=== PATIENT | female | born 1940 | race Caucasian/White ===

== ENCOUNTER 2018-11-03 15:14 | Inpatient (IN) | payer MEDICARE, OTHER ==
[~2018-11-03] VITALS: Ht 172.7 cm; Wt 89.0 kg
[~2018-11-03 15:14] MED LIST: FURO-61 PO; POTA20TA19 PO; PRED20TA PO
[2018-11-03] MEDS ORDERED: ipratropium/albuterol 3ml nebule NEB ONE (15:55)
[2018-11-03] MEDS ORDERED: normal saline 1000ML IV soln IV ONE (15:55)
[2018-11-03] MEDS ORDERED: diltiazem 5mg/ml 5ml inj. IV ONE ×2 (16:35→17:55)
[2018-11-03 16:44] LABS: BASOPHILS % (AUTO) 0.5 % (0-1); EOSINOPHILS % (AUTO) 0.4 % (0-6); HEMOGLOBIN 15.4 g/dl (12.0-16.0); LYMPHOCYTES # (AUTO) 2.2 X10'3 (1.1-4.8); LYMPHOCYTES % (AUTO) 35.3 % (21-51); MEAN CORPUSCULAR HEMOGLOBIN 31.6 PG (27.0-31.0); MEAN CORPUSCULAR HGB CONC 32.8 % (33.0-36.5); MEAN CORPUSCULAR VOLUME 96.1 FL (78-98); MONOCYTES # (AUTO) 1.1 X10'3 (0-0.9); MONOCYTES % (AUTO) 17.7 % (2-12); NEUTROPHILS # (AUTO) 2.8 X10'3 (1.8-7.7); NEUTROPHILS % (AUTO) 46.1 % (42-75); PLATELET COUNT 163 X10'3 (140-440); RED BLOOD COUNT 4.89 X10'6 (4.20-5.60); RED CELL DISTRIBUTION WIDTH 13.7 % (11.5-14.5); WHITE BLOOD COUNT 6.1 X10'3 (4.5-11.0)
[2018-11-03 17:01] LABS: ALANINE AMINOTRANSFERASE 24 U/L (12-78); ALBUMIN 3.5 G/DL (3.4-5.0); ALBUMIN/GLOBULIN RATIO 1.1 (1.1-1.5); ALKALINE PHOSPHATASE 102 IU/L (46-116); ANION GAP 11 (8-16); ASPARTATE AMINO TRANSFERASE 35 U/L (10-37); BILIRUBIN,TOTAL 0.4 MG/DL (0.1-1.0); BLOOD UREA NITROGEN 29 MG/DL (7-18); BUN/CREATININE RATIO 17.8 (6.6-38.0); CALCIUM 8.6 MG/DL (8.5-10.1); CHLORIDE 101 MMOL/L (99-107); CREATININE 1.63 MG/DL (0.40-0.90); GLUCOSE 118 MG/DL (70-104); POTASSIUM 3.6 MMOL/L (3.5-5.1); SODIUM 140 MMOL/L (135-145); TOTAL CARBON DIOXIDE 27.6 MMOL/L (24-32); TOTAL PROTEIN 6.8 G/DL (6.4-8.2); eGFR 30 ML/MIN
[2018-11-03 17:05] LABS: PROTHROMBIN TIME 10.3 SECONDS (9.0-12.0)
--- NOTE | 2018-11-03 17:12 | NUR ---
LAB CALLED PT INFLUENZA A POSITIVE
[2018-11-03] MEDS ORDERED: oseltamivir phos 75mg capsule PO ONE (17:15)
[2018-11-03] MEDS ORDERED: CefTRIAXone 2gm/D5W 50ml 50 ML IV ONE (17:15)
[2018-11-03] MEDS ORDERED: azithromycin/NS 500mg/250ml 250 ML IV ONE (17:15)
[2018-11-03] MEDS: diltiazem-D5W 125mg/125ml 125 ML IV SCH ×2 (17:19→18:06)
[2018-11-03] MEDS ORDERED: magnesium hydroxide 30ml (MOM) UD suspension PO PRN (17:25)
[2018-11-03] MEDS ORDERED: morphine 4 MG/ML inj SYRINge IV PRN ×2 (17:25)
[2018-11-03] MEDS ORDERED: HYDROcodone/acetaminophen 5mg/325mg tablet PO PRN (17:25)
[2018-11-03] MEDS ORDERED: acetaminophen 325mg tablet PO PRN (17:25)
[2018-11-03] MEDS ORDERED: mag hydrox/Alum hydrox/simeth 30ml oral suspension PO PRN (17:25)
[2018-11-03] MEDS ORDERED: ALLO100T PO (17:46)
[2018-11-03] MEDS ORDERED: POTA-82 PO (17:46)
[2018-11-03] MEDS ORDERED: VERA-1 PO (17:46)
[2018-11-03] MEDS ORDERED: CALC0.2535 PO (17:46)
[2018-11-03] MEDS ORDERED: GABA-532 PO (17:47)
[2018-11-03] MEDS ORDERED: ROSU5TAB PO (17:47)
[2018-11-03] MEDS ORDERED: CYAN-19 PO (17:48)
[2018-11-03] MEDS ORDERED: CHOL10002 PO (17:48)
[2018-11-03] MEDS ORDERED: ASPI-611 PO (17:50)
[2018-11-03] MEDS ORDERED: DOCU100C59 PO (17:50)
[2018-11-03] MEDS ORDERED: FURO-150 PO (17:53)
[2018-11-03] MEDS ORDERED: diltiazem 30mg tablet PO ONE (18:05)
[2018-11-03 18:36] LABS: CLARITY,URINE SLIGHTLY CLOUDY (Clear); COLOR,URINE YELLOW (Yellow); GLUCOSE, URINE NEGATIVE (Neg); KETONES,URINE 15 mg/dl (Neg); LEUKOCYTE ESTERASE ,URINE NEGATIVE (Neg); NITRITES, URINE NEGATIVE (Neg); OCCULT BLOOD,URINE NEGATIVE (Neg); PH,URINE 5.5 (4.8-8.0); PROTEIN,URINE 30 mg/dl (Neg)
[2018-11-03] MEDS: dextrose 5%-1/2 normal saline 1,000 ML IV SCH (18:39)
[2018-11-03] MEDS: ondansetron/PF 4mg/2ml inj IV PRN (18:42)
--- NOTE | 2018-11-03 18:42 | NUR ---
Pt states she got nauseated, adm zofran she wants to eat She continues to text on her phone
[2018-11-03 18:46] LABS: UA COLLECTION TYPE STRAIGHT CATH
[2018-11-03 18:48] LABS: BACTERIA,URINE NONE SEEN /HPF (Neg); MUCUS STRANDS FEW /LPF (Neg); RBC,URINE NONE SEEN /HPF (0-2); SQUAMOUS EPITHELIAL CELL,UR FEW /LPF (FEW); WBC,URINE NONE SEEN /HPF (0-4)
[2018-11-03 18:49] LABS: AMORPHOUS URATES 2+
--- NOTE | 2018-11-03 18:57 | NUR ---
Patient in room ED 3. I have received report from Annmarie CAMPOVERDE in the ED and had the opportunity to ask questions and assume patient care.
--- NOTE | 2018-11-03 19:05 | NUR ---
awaiting transport monitor so pt can be moved to her room but pt packaged.
[2018-11-03 19:11] LABS: TROPONIN I 0.05 NG/ML (0.0-0.05)
[2018-11-03 19:30] VITALS: BP 137/73
--- NOTE | 2018-11-03 19:30 | NUR ---
Pt is now in 3021. She is pleasant and sitting up in bed. She is hungry. Ordering late tray for her. Regular diet. DM controlled by diet per pt. She is flu A + and is droplet precaution. VS: 98.1 T 92 HR 20 RR 99 2L 137/73 BP L ARM AUTO 0/10 PAIN
[2018-11-03 20:00] VITALS: BP_SYST 108; BP_SYST 112; BP_SYST 137; BP_DIAS 69; BP_DIAS 73; BP_DIAS 74
[2018-11-03] MEDS: oseltamivir phos 75mg capsule PO SCH (20:00)
[2018-11-03] MEDS: furosemide 20MG tablet PO SCH ×2 (20:00→20:44)
[2018-11-03] MEDS: aspirin 81mg tab.chew PO SCH (20:43)
[2018-11-03] MEDS: docusate sod 100mg capsule PO SCH (20:43)
[2018-11-03] MEDS: atorvastatin 20mg tablet PO SCH (20:43)
[2018-11-03] MEDS: gabapentin 300mg capsule PO SCH (20:44)
[2018-11-03 22:24] LABS: TOTAL CELLS COUNTED 100
[2018-11-03 22:26] LABS: PLATELET ESTIMATE NORMAL
--- NOTE | 2018-11-03 22:54 | NUR ---
Spoke with Dr. Jensen regarding increased trop, 0.05 to 0.08. Only singles were ordered, series was cancelled. Dr. Jensen explained the increase is due to her new onset of afib, and not to continue the series. Pt also has active orders for Cardizem gtt, despite not coming up on one. I was given orders to DC the gtt since it is not necessary at this time.
[2018-11-03 23:00] VITALS: BP 105/66
[2018-11-04 03:00] VITALS: BP 146/81
[2018-11-04] MEDS: dextrose 5%-1/2 normal saline 1,000 ML IV SCH (03:21)
[2018-11-04] MEDS: ondansetron/PF 4mg/2ml inj IV PRN (03:41)
[2018-11-04 04:44] LABS: BASOPHILS % (AUTO) 0.3 % (0-1); EOSINOPHILS % (AUTO) 0 % (0-6); HEMATOCRIT 42.3 % (35.0-45.0); HEMOGLOBIN 13.9 g/dl (12.0-16.0); LYMPHOCYTES # (AUTO) 1.5 X10'3 (1.1-4.8); LYMPHOCYTES % (AUTO) 28.8 % (21-51); MEAN CORPUSCULAR HEMOGLOBIN 31.8 PG (27.0-31.0); MEAN CORPUSCULAR HGB CONC 32.8 % (33.0-36.5); MEAN CORPUSCULAR VOLUME 96.9 FL (78-98); MONOCYTES # (AUTO) 0.8 X10'3 (0-0.9); MONOCYTES % (AUTO) 16.2 % (2-12); NEUTROPHILS # (AUTO) 2.8 X10'3 (1.8-7.7); NEUTROPHILS % (AUTO) 54.7 % (42-75); PLATELET COUNT 142 X10'3 (140-440); RED BLOOD COUNT 4.36 X10'6 (4.20-5.60); RED CELL DISTRIBUTION WIDTH 13.9 % (11.5-14.5); WHITE BLOOD COUNT 5.1 X10'3 (4.5-11.0)
[2018-11-04 05:02] LABS: ALBUMIN 3.1 G/DL (3.4-5.0); ANION GAP 9 (8-16); BLOOD UREA NITROGEN 24 MG/DL (7-18); BUN/CREATININE RATIO 17.9 (6.6-38.0); CALCIUM 7.7 MG/DL (8.5-10.1); CHLORIDE 106 MMOL/L (99-107); CREATININE 1.34 MG/DL (0.40-0.90); GLUCOSE 140 MG/DL (70-104); POTASSIUM 3.5 MMOL/L (3.5-5.1); SODIUM 142 MMOL/L (135-145); TOTAL CARBON DIOXIDE 27.2 MMOL/L (24-32); eGFR 38 ML/MIN
--- NOTE | 2018-11-04 06:30 | NUR ---
Problems reprioritized. Patient report given, questions answered & plan of care reviewed with Lizette CAMPOVERDE.
--- NOTE | 2018-11-04 06:34 | NUR ---
Patient in room PCU 3022. I have received report from NIRALI Bush and had the opportunity to ask questions and assume patient care.
[2018-11-04 07:00] VITALS: BP 158/80
[2018-11-04] MEDS: calcitriol 0.25mcg capsule PO SCH (07:32)
[2018-11-04] MEDS: cyanocobalamin 500mcg tablet PO SCH (07:32)
[2018-11-04] MEDS: vitamin D (cholecalciferol) 1,000 unit tablet PO SCH (07:32)
[2018-11-04] MEDS: acetaminophen 325mg tablet PO PRN (07:33)
[2018-11-04] MEDS: potassium Cl 20 mEq SR tablet PO SCH (07:34)
[2018-11-04] MEDS: furosemide 20MG tablet PO SCH ×2 (07:34→20:00)
[2018-11-04] MEDS: allopurinol 100mg tablet PO SCH (07:34)
[2018-11-04] MEDS: oseltamivir phos 75mg capsule PO SCH ×2 (07:35→21:35)
[2018-11-04] MEDS ORDERED: enoxaparin 40mg/0.4ml syringe SUBCUT SCH (08:00)
[2018-11-04] MEDS ORDERED: verapamil SR 120mg (sust. release) tab PO SCH (08:00)
--- NOTE | 2018-11-04 08:19 | NUR ---
PAGER ID: [phone] MESSAGE: [phone] pt Alberto is Afib with HR sustaining 140s-150s. She is not on a gtt and has no PRN to address this. Please advise - Lizette [phone]
[2018-11-04] MEDS ORDERED: diltiazem 5mg/ml 5ml inj. IV STA (08:38)
[2018-11-04] MEDS ORDERED: dextrose 50%-water 50ml dispensing syringe IV PRN ×2 (08:45)
[2018-11-04] MEDS ORDERED: insulin Lispro (HumaLOG) vial - multi-dose SQ SCH (08:45)
[2018-11-04] MEDS ORDERED: dextrose ORAL solution 15 GM/59 ML bottle PO PRN ×2 (08:45)
[2018-11-04] MEDS ORDERED: glucagon, human recombinant 1mg kit SUBCUT PRN (08:45)
--- NOTE | 2018-11-04 09:31 | NUR ---
Paged Dr. Greenwood PAGER ID: [phone] MESSAGE: FYI 3022 Alberto, BP 114/60. Thanks Nona [phone]
[2018-11-04] MEDS ORDERED: enoxaparin 50mg/0.5ml (from 3ml vial) syringe SUBCUT ONE (09:45)
[2018-11-04] MEDS: diltiazem-D5W 125mg/125ml 125 ML IV SCH (09:52)
[2018-11-04 11:00] VITALS: BP 147/76
--- NOTE | 2018-11-04 11:54 | NUR ---
Paged Echo [phone] [facility] active order for echo. Thank you
[2018-11-04] MEDS: methylPREDNISolone sod succ 125mg/2ml vial IV SCH ×3 (12:15→23:53)
[2018-11-04] MEDS: CefTRIAXone/D5W-Rocephin 1gm 50 ML IV SCH (12:18)
[2018-11-04] MEDS: azithromycin/NS 500mg/250ml 250 ML IV SCH (13:23)
[2018-11-04 15:00] VITALS: BP 110/72
[2018-11-04] MEDS: ipratropium/albuterol 3ml nebule NEB SCH ×2 (15:54→20:07)
[2018-11-04 16:46] LABS: ALANINE AMINOTRANSFERASE 43 U/L (12-78); ALBUMIN 3.4 G/DL (3.4-5.0); ALKALINE PHOSPHATASE 96 IU/L (46-116); ASPARTATE AMINO TRANSFERASE 58 U/L (10-37); BILIRUBIN,DIRECT 0.2 MG/DL (0-0.3); BILIRUBIN,TOTAL 0.3 MG/DL (0.1-1.0); TOTAL PROTEIN 6.8 G/DL (6.4-8.2)
--- NOTE | 2018-11-04 18:15 | NUR ---
Patient in room PCU 3022. I have received report from Lizette CAMPOVERDE and had the opportunity to ask questions and assume patient care. Pt is currently awake and in bed. She is now on a cardizem gtt running at 3. Continuous pulse ox via vitals machine, no more mobiles available. ACHS accuchecks. There are written orders that were done via telephone from Dr. Johnston regarding new meds starting tmro.
--- NOTE | 2018-11-04 18:41 | NUR ---
[place] documentation: I have reviewed and agree with all interventions, assessments performed and documented by NIRALI Castellano. [place] Medication Administration: For this medication-pass time frame, all medication were reviewed, dispensed, administered and documented per hospital policy by NIRALI Castellano.
--- NOTE | 2018-11-04 18:42 | NUR ---
Problems reprioritized. Patient report given, questions answered & plan of care reviewed with Rachelle RN.
[2018-11-04 19:00] VITALS: BP 110/72
[2018-11-04] MEDS ORDERED: enoxaparin 100mg/ml syringe SUBCUT SCH (20:00)
[2018-11-04] MEDS: insulin glargine (Lantus) pen - multi-dose SQ SCH (21:00)
[2018-11-04] MEDS: lactobacillus rhamnosus 10,000 MMU CELLS/CAPSULE PO SCH (21:35)
[2018-11-04] MEDS: enoxaparin 60mg/0.6ml syringe SUBCUT SCH (21:36)
[2018-11-04] MEDS: enoxaparin 30mg/0.3ml syringe SUBCUT SCH (21:36)
[2018-11-04] MEDS: docusate sod 100mg capsule PO SCH (21:37)
[2018-11-04] MEDS: gabapentin 300mg capsule PO SCH (21:37)
[2018-11-04] MEDS: atorvastatin 20mg tablet PO SCH (21:37)
[2018-11-04] MEDS: aspirin 81mg tab.chew PO SCH (21:37)
[2018-11-04 23:00] VITALS: BP 137/90
[2018-11-05] VITALS (7 sets, daily range): BP systolic 117–135; BP diastolic 65–95
[2018-11-05 05:33] LABS: BASOPHILS % (AUTO) 0.2 % (0-1); EOSINOPHILS % (AUTO) 0.3 % (0-6); HEMATOCRIT 43.4 % (35.0-45.0); HEMOGLOBIN 14.4 g/dl (12.0-16.0); LYMPHOCYTES # (AUTO) 0.8 X10'3 (1.1-4.8); LYMPHOCYTES % (AUTO) 34.9 % (21-51); MEAN CORPUSCULAR HEMOGLOBIN 31.8 PG (27.0-31.0); MEAN CORPUSCULAR HGB CONC 33.1 % (33.0-36.5); MEAN CORPUSCULAR VOLUME 96.1 FL (78-98); MEAN PLATELET VOLUME 9.2 FL (7.4-10.4); MONOCYTES # (AUTO) 0.1 X10'3 (0-0.9); MONOCYTES % (AUTO) 4.2 % (2-12); NEUTROPHILS # (AUTO) 1.3 X10'3 (1.8-7.7); NEUTROPHILS % (AUTO) 60.4 % (42-75); PLATELET COUNT 135 X10'3 (140-440); RED BLOOD COUNT 4.51 X10'6 (4.20-5.60); RED CELL DISTRIBUTION WIDTH 13.7 % (11.5-14.5); WHITE BLOOD COUNT 2.2 X10'3 (4.5-11.0)
[2018-11-05 05:45] LABS: ALBUMIN 3.4 G/DL (3.4-5.0); ANION GAP 12 (8-16); BLOOD UREA NITROGEN 25 MG/DL (7-18); BUN/CREATININE RATIO 18.5 (6.6-38.0); CALCIUM 8.7 MG/DL (8.5-10.1); CHLORIDE 104 MMOL/L (99-107); CREATININE 1.35 MG/DL (0.40-0.90); GLUCOSE 226 MG/DL (70-104); SODIUM 141 MMOL/L (135-145); TOTAL CARBON DIOXIDE 25.2 MMOL/L (24-32); eGFR 38 ML/MIN
--- NOTE | 2018-11-05 06:15 | NUR ---
Problems reprioritized. Patient report given, questions answered & plan of care reviewed with Maggie CAMPOVERDE.
[2018-11-05] MEDS: lactobacillus rhamnosus 10,000 MMU CELLS/CAPSULE PO SCH ×2 (07:39→20:24)
[2018-11-05] MEDS: oseltamivir phos 75mg capsule PO SCH ×2 (07:39→20:22)
[2018-11-05] MEDS: potassium Cl 20 mEq SR tablet PO SCH (07:39)
[2018-11-05] MEDS: CefTRIAXone/D5W-Rocephin 1gm 50 ML IV SCH (07:39)
[2018-11-05] MEDS: azithromycin/NS 500mg/250ml 250 ML IV SCH (07:39)
[2018-11-05] MEDS: cyanocobalamin 500mcg tablet PO SCH (07:39)
[2018-11-05] MEDS: vitamin D (cholecalciferol) 1,000 unit tablet PO SCH (07:40)
[2018-11-05] MEDS: furosemide 20MG tablet PO SCH ×2 (07:40→20:00)
[2018-11-05] MEDS: enoxaparin 30mg/0.3ml syringe SUBCUT SCH (07:40)
[2018-11-05] MEDS: allopurinol 100mg tablet PO SCH (07:40)
[2018-11-05] MEDS: enoxaparin 60mg/0.6ml syringe SUBCUT SCH (07:40)
[2018-11-05] MEDS: methylPREDNISolone sod succ 125mg/2ml vial IV SCH ×2 (08:01→15:22)
--- NOTE | 2018-11-05 08:01 | NUR ---
PATIENT REFUSING INSULIN
[2018-11-05] MEDS: ipratropium/albuterol 3ml nebule NEB SCH ×3 (08:37→20:33)
[2018-11-05] MEDS: acetaminophen 325mg tablet PO PRN (09:45)
--- NOTE | 2018-11-05 11:25 | NUR ---
patient stating that she wants to go home and she is upset that the MD this morning told her she wasnt quite ready. She is asking if she can go anyways despite doctors orders.
[2018-11-05 11:35] LABS: BANDS% (MANUAL) 1.5 % (0-10); LYMPHOCYTES % (MANUAL) 24.5 % (21-51); MONOCYTES % (MANUAL) 3.5 % (2-12); NEUTROPHILS % (MANUAL) 70.5 % (42-75); PLATELET ESTIMATE DECREASED; TOTAL CELLS COUNTED 200
--- NOTE | 2018-11-05 13:39 | NUR ---
patients BS was 255, patient states "I do not take insulin" , she is refusing at this time
--- NOTE | 2018-11-05 16:43 | NUR ---
isatu came by and requested changes to the patients medication as follows : Coreg increased to 12.5 mg BID, PBNP lab to be drawn in the am and eliquis 5 mg BID to replace to the lovenox injections and ease the patient into discharge
--- NOTE | 2018-11-05 18:21 | NUR ---
Problems reprioritized. Patient report given, questions answered & plan of care reviewed with Charanjit CAMPOVERDE.
[2018-11-05] MEDS ORDERED: carvedilol 6.25mg tablet PO SCH (20:00)
[2018-11-05] MEDS: gabapentin 300mg capsule PO SCH (20:22)
[2018-11-05] MEDS: atorvastatin 20mg tablet PO SCH (20:22)
[2018-11-05] MEDS: carVEDilol 12.5mg tablet PO SCH (20:23)
[2018-11-05] MEDS: aspirin 81mg tab.chew PO SCH (20:23)
[2018-11-05] MEDS: docusate sod 100mg capsule PO SCH (20:24)
[2018-11-05] MEDS: amiodarone 200mg tablet PO SCH (20:24)
[2018-11-05] MEDS: insulin glargine (Lantus) pen - multi-dose SQ SCH (20:57)
[2018-11-06] VITALS (10 sets, daily range): BP systolic 92–128; BP diastolic 71–96
[2018-11-06] MEDS: methylPREDNISolone sod succ 125mg/2ml vial IV SCH ×3 (00:25→15:41)
[2018-11-06] MEDS: diltiazem-D5W 125mg/125ml 125 ML IV SCH (01:00)
--- NOTE | 2018-11-06 06:09 | NUR ---
Problems reprioritized. Patient report given, questions answered & plan of care reviewed with Virginia CAMPOVERDE.
[2018-11-06 06:12] LABS: BASOPHILS % (AUTO) 0.1 % (0-1); EOSINOPHILS % (AUTO) 0.7 % (0-6); HEMOGLOBIN 14.4 g/dl (12.0-16.0); LYMPHOCYTES % (AUTO) 13.8 % (21-51); MEAN CORPUSCULAR HEMOGLOBIN 32.4 PG (27.0-31.0); MEAN CORPUSCULAR HGB CONC 33.4 % (33.0-36.5); MEAN CORPUSCULAR VOLUME 96.8 FL (78-98); MEAN PLATELET VOLUME 9.4 FL (7.4-10.4); MONOCYTES # (AUTO) 0.6 X10'3 (0-0.9); MONOCYTES % (AUTO) 7.5 % (2-12); NEUTROPHILS # (AUTO) 5.9 X10'3 (1.8-7.7); NEUTROPHILS % (AUTO) 77.9 % (42-75); PLATELET COUNT 139 X10'3 (140-440); RED BLOOD COUNT 4.44 X10'6 (4.20-5.60); RED CELL DISTRIBUTION WIDTH 13.6 % (11.5-14.5); WHITE BLOOD COUNT 7.5 X10'3 (4.5-11.0)
--- NOTE | 2018-11-06 06:15 | NUR ---
Patient in room PCU 3022. I have received report from SERA CAMPOVERDE and had the opportunity to ask questions and assume patient care.
--- NOTE | 2018-11-06 06:15 | NUR ---
CORRECTED NOTE: Patient in room PCU 3022. I have received report from NEHA CAMPOVERDE and had the opportunity to ask questions and assume patient care.
[2018-11-06 06:38] LABS: ALBUMIN 3.4 G/DL (3.4-5.0); ANION GAP 9 (8-16); BLOOD UREA NITROGEN 36 MG/DL (7-18); BUN/CREATININE RATIO 24.2 (6.6-38.0); CHLORIDE 106 MMOL/L (99-107); CREATININE 1.49 MG/DL (0.40-0.90); GLUCOSE 195 MG/DL (70-104); POTASSIUM 4.7 MMOL/L (3.5-5.1); SODIUM 141 MMOL/L (135-145); TOTAL CARBON DIOXIDE 25.6 MMOL/L (24-32); eGFR 34 ML/MIN
--- NOTE | 2018-11-06 08:30 | NUR ---
Refuses insulin treatment for 201 blood sugar.
[2018-11-06] MEDS: ipratropium/albuterol 3ml nebule NEB SCH ×2 (08:32→15:00)
[2018-11-06] MEDS: calcitriol 0.25mcg capsule PO SCH (09:52)
[2018-11-06] MEDS: potassium Cl 20 mEq SR tablet PO SCH (09:52)
[2018-11-06] MEDS: carVEDilol 12.5mg tablet PO SCH (09:52)
[2018-11-06] MEDS: amiodarone 200mg tablet PO SCH ×2 (09:52→19:18)
[2018-11-06] MEDS: oseltamivir phos 75mg capsule PO SCH ×2 (09:52→19:19)
[2018-11-06] MEDS: lactobacillus rhamnosus 10,000 MMU CELLS/CAPSULE PO SCH ×2 (09:52→19:19)
[2018-11-06] MEDS: vitamin D (cholecalciferol) 1,000 unit tablet PO SCH (09:52)
[2018-11-06] MEDS: furosemide 20MG tablet PO SCH ×2 (09:52→19:21)
[2018-11-06] MEDS: cyanocobalamin 500mcg tablet PO SCH (09:53)
[2018-11-06] MEDS: azithromycin/NS 500mg/250ml 250 ML IV SCH (09:53)
[2018-11-06] MEDS: allopurinol 100mg tablet PO SCH (09:53)
[2018-11-06] MEDS: apixaban 5mg tablet PO SCH ×2 (09:54→19:19)
[2018-11-06] MEDS ORDERED: carVEDilol 3.125mg tablet PO ONE (11:00)
--- NOTE | 2018-11-06 11:00 | NUR ---
Started to wean Cardizem at this time, decreased to 2 mcg. Will decrease to 1 in 2 hours.
[2018-11-06] MEDS: CefTRIAXone/D5W-Rocephin 1gm 50 ML IV SCH (11:59)
--- NOTE | 2018-11-06 12:59 | NUR ---
Refuses insulin treatment for 254 blood sugar.
--- NOTE | 2018-11-06 13:18 | NUR ---
Decreased Cardizem to 1 mcg. Will turn off at 1500 and reevaluate heart status.
--- NOTE | 2018-11-06 15:12 | NUR ---
Stopped Cardizem drip, will cont. to monitor heart rate and rhythm.
[2018-11-06] MEDS ORDERED: CARV3.122 PO (17:01)
[2018-11-06] MEDS ORDERED: TAM75C PO (17:01)
[2018-11-06] MEDS ORDERED: AMOX-422 PO (17:01)
[2018-11-06] MEDS ORDERED: APIX5TAB3 PO (17:01)
[2018-11-06] MEDS ORDERED: AZI25OT PO (17:01)
[2018-11-06] MEDS ORDERED: CARV-50 PO (17:01)
[2018-11-06] MEDS ORDERED: AMIO200T40 PO ×2 (17:01)
[2018-11-06] MEDS ORDERED: PRED10TA PO (17:01)
--- NOTE | 2018-11-06 17:58 | NUR ---
Noted blood glucose 208, patient refuses insulin tx. Pending discharge this evening.
[2018-11-06] MEDS: gabapentin 300mg capsule PO SCH (19:18)
[2018-11-06] MEDS: aspirin 81mg tab.chew PO SCH (19:18)
[2018-11-06] MEDS: docusate sod 100mg capsule PO SCH (19:19)
[2018-11-06] MEDS: atorvastatin 20mg tablet PO SCH (19:19)
[2018-11-06] MEDS: insulin glargine (Lantus) pen - multi-dose SQ SCH (19:20)
[2018-11-06] MEDS ORDERED: carVEDilol 12.5mg tablet PO SCH (20:00)
--- NOTE | 2018-11-06 20:43 | NUR ---
DISCHARGED AT THIS TIME VIA W/C WITH AT SIDE WITHOUT EVENT, ESCORTED TO PRIVATE VEHICLE PER [facility] STAFF. BROUGHT HOME OXYGEN TO HOSPITAL FOR TIME OF DISCHARGE, APPLIED 2 L N/C TO PATIENT. REMOVED IV'S X2, CATHLON INTACT X 2. REMOVED PATIENT FROM MOBILE. DISCUSSED DISCHARGE INSTRUCTIONS WITH PATIENT-VERBALIZED UNDERSTANDING. FAXED PHARMACY ORDERS AND CALLED TO CONFIRM NEW MEDICATION ORDERS,PATIENT WILL PICK-UP MEDS TOMORROW FROM [facility]. BELONGINGS SENT WITH PATIENT. PATIENT EAGER TO GO HOME.
[2018-11-07] MEDS ORDERED: azithromycin 250mg tablet PO SCH (08:00)
[2018-11-12] MEDS ORDERED: amiodarone 200mg tablet PO SCH (20:00)
[2018-11-26] MEDS ORDERED: amiodarone 200mg tablet PO SCH (08:00)
== END 2018-11-06 20:45 | disposition home health service (06) | DRG 193 ==
LOC: ER 15:15 → ED HOLD 17:21 → PCU 3S 19:25
PROVIDERS: ADMIT Internal Medicine; ATTEND Family Medicine
DX: J10.00 Influenza due to other identified influenza virus with unspecified type of pneumonia (principal); J96.21 Acute and chronic respiratory failure with hypoxia; J44.0 Chronic obstructive pulmonary disease with (acute) lower respiratory infection; I48.91 Unspecified atrial fibrillation; J18.9 Pneumonia, unspecified organism; E11.42 Type 2 diabetes mellitus with diabetic polyneuropathy; E11.22 Type 2 diabetes mellitus with diabetic chronic kidney disease; E66.9 Obesity, unspecified; E78.00 Pure hypercholesterolemia, unspecified; E78.5 Hyperlipidemia, unspecified; M10.9 Gout, unspecified; I12.9 Hypertensive chronic kidney disease with stage 1 through stage 4 chronic kidney disease, or unspecified chronic kidney disease; J20.9 Acute bronchitis, unspecified; N18.3 Chronic kidney disease, stage 3 (moderate); Z83.3 Family history of diabetes mellitus; Z85.528 Personal history of other malignant neoplasm of kidney; Z85.6 Personal history of leukemia; Z87.891 Personal history of nicotine dependence; Z90.5 Acquired absence of kidney; Z90.710 Acquired absence of both cervix and uterus; Z99.81 Dependence on supplemental oxygen; Z88.5 Allergy status to narcotic agent; Z79.899 Other long term (current) drug therapy
CPT/HCPCS: 36415; 71045; 80048; 80053; 80076; 81001; 82948; 83605; 83880; 84145; 84439; 84443; 84484; 85025; 85610; 87040; 87070; 87502; 87503; 93005; 93306; 94640; 94667; 94760; 96374; 99291; G0378; J0456; J0696; J1650; J1815; J2405; J2930; J3420; J3490

== ENCOUNTER 2023-07-03 11:59 | Emergency (ER) | payer MEDICARE, OTHER ==
[~2023-07-03] VITALS: Ht 154.9 cm; Wt 100.0 kg
[~2023-07-03 11:59] MED LIST changes: +ALLO100T PO; +AMIO200T27 PO; +APIX5TAB3 PO; +CALC0.2535 PO; +CARV-50 PO; +CHOL10002 PO; +CYAN-104 PO; +FURO-150 PO; -FURO-61 PO; +GABA-532 PO; +LEVO50TA8 PO; +LIOT5TAB10 PO; +POTA-366 PO; -POTA20TA19 PO; -PRED20TA PO; +ROSU5TAB PO
--- NOTE | 2023-07-03 12:14 | NUR ---
EKG 1210
[2023-07-03 12:18] VITALS: TEMP 98.1
[2023-07-03 12:20] LABS: BASOPHILS % (AUTO) 0.3 % (0-1); EOSINOPHILS # (AUTO) 0.1 X10'3 (0-0.9); EOSINOPHILS % (AUTO) 1.9 % (0-6); HEMATOCRIT 39.6 % (35.0-45.0); HEMOGLOBIN 12.5 g/dl (12.0-16.0); LYMPHOCYTES # (AUTO) 1.5 X10'3 (1.1-4.8); MEAN CORPUSCULAR HEMOGLOBIN 31.3 PG (27.0-31.0); MEAN CORPUSCULAR HGB CONC 31.7 g/dL (33.0-36.5); MEAN CORPUSCULAR VOLUME 98.9 FL (78-98); MEAN PLATELET VOLUME 8.1 FL (7.4-10.4); MONOCYTES # (AUTO) 0.7 X10'3 (0-0.9); MONOCYTES % (AUTO) 11.4 % (2-12); NEUTROPHILS # (AUTO) 4.1 X10'3 (1.8-7.7); NEUTROPHILS % (AUTO) 63.4 % (42-75); PLATELET COUNT 201 X10'3 (140-440); RED CELL DISTRIBUTION WIDTH 14.6 % (11.5-14.5); WHITE BLOOD COUNT 6.5 X10'3 (4.5-11.0)
[2023-07-03 12:34] LABS: ALANINE AMINOTRANSFERASE 18 U/L (12-78); ALBUMIN 3.7 G/DL (3.4-5.0); ALBUMIN/GLOBULIN RATIO 1.2 (1.1-1.5); ALKALINE PHOSPHATASE 103 IU/L (46-116); ANION GAP 4 (8-16); ASPARTATE AMINO TRANSFERASE 17 U/L (10-37); BILIRUBIN,TOTAL 0.5 MG/DL (0.1-1.0); BLOOD UREA NITROGEN 22 MG/DL (7-18); CALCIUM 9.5 MG/DL (8.5-10.1); CHLORIDE 107 MMOL/L (99-107); CREATININE 1.47 MG/DL (0.40-0.90); GLUCOSE 100 MG/DL (70-104); POTASSIUM 4.9 MMOL/L (3.5-5.1); SODIUM 144 MMOL/L (135-145); TOTAL CARBON DIOXIDE 32.7 MMOL/L (24-32); TOTAL PROTEIN 6.9 G/DL (6.4-8.2); eCRCL 22 ML/MIN; eGFR 34 ML/MIN
[2023-07-03 12:42] LABS: PRO BRAIN NATRIURETIC PEPTIDE 815 PG/ML (0-450)
--- NOTE | 2023-07-03 13:02 | NUR ---
PT REQ RN WAIT ON GETTING IV UNLESS ITS NECESSARY. RN WILL REASSESS AFTER PT IS SEEN BY .
[2023-07-03] MEDS ORDERED: meclizine 12.5mg tablet PO ONE (14:10)
[2023-07-03 16:23] VITALS: BP 138/85; PULSE 61; RESP 19; O2SAT 95
--- NOTE | 2023-07-03 17:39 | NUR ---
PATIENT IS DRESSED AND DEPARTING FROM ER, STATES SHE DOES NOT WANT TO WAIT ANY LONGER AND IF SHE NEEDS MEDICATION, CALL HER ABOUT IT. PATIENT DEPARTED AMBULATORY ACCOMPANIED BY .
--- NOTE | 2023-07-03 17:48 | NUR ---
PT DISCHARGED/PAPERWORK SIGNED/INSTRUCTIONS PROVIDED BY CHARGE JOSE ALFREDO CAMPOVERDE. NO IV WAS PLACED.
== END 2023-07-03 17:48 | disposition left against medical advice (07) ==
LOC: ER 12:00
DX: R53.1 Weakness (principal); R53.83 Other fatigue; R11.2 Nausea with vomiting, unspecified; E78.00 Pure hypercholesterolemia, unspecified; J44.9 Chronic obstructive pulmonary disease, unspecified; E11.9 Type 2 diabetes mellitus without complications; Z88.5 Allergy status to narcotic agent; Z79.899 Other long term (current) drug therapy
CPT/HCPCS: 36415; 71045; 80053; 83880; 84484; 85025; 93005; 93880; 99285; J8597

== ENCOUNTER 2023-12-25 09:36 | Inpatient (IN) | payer MEDICARE, OTHER ==
[~2023-12-25] VITALS: Ht 162.6 cm; Wt 97.3 kg
[2023-12-25] VITALS (10 sets, daily range): BP systolic 160–176; BP diastolic 58–79; PULSE 52–60; RESP 16–20; TEMP 97.4–98.1; O2SAT 97–100
[2023-12-25 10:21] LABS: BASOPHILS % (AUTO) 0.5 % (0-1); EOSINOPHILS # (AUTO) 0.1 X10'3 (0-0.9); EOSINOPHILS % (AUTO) 2.2 % (0-6); LYMPHOCYTES # (AUTO) 1.2 X10'3 (1.1-4.8); LYMPHOCYTES % (AUTO) 21.7 % (21-51); MEAN CORPUSCULAR HEMOGLOBIN 26.8 PG (27.0-31.0); MEAN CORPUSCULAR HGB CONC 29.5 g/dL (33.0-36.5); MEAN CORPUSCULAR VOLUME 91.1 FL (78-98); MEAN PLATELET VOLUME 6.9 FL (7.4-10.4); MONOCYTES # (AUTO) 0.5 X10'3 (0-0.9); MONOCYTES % (AUTO) 9.3 % (2-12); NEUTROPHILS # (AUTO) 3.6 X10'3 (1.8-7.7); NEUTROPHILS % (AUTO) 66.3 % (42-75); PLATELET COUNT 231 X10'3 (140-440); RED BLOOD COUNT 1.98 X10'6 (4.20-5.60); RED CELL DISTRIBUTION WIDTH 17.2 % (11.5-14.5); WHITE BLOOD COUNT 5.4 X10'3 (4.5-11.0)
[2023-12-25 10:27] LABS: INR 1.1 INR
[2023-12-25 10:34] LABS: ALANINE AMINOTRANSFERASE 15 U/L (12-78); ALBUMIN 3.1 G/DL (3.4-5.0); ALBUMIN/GLOBULIN RATIO 1.1 (1.1-1.5); ALKALINE PHOSPHATASE 61 IU/L (46-116); ANION GAP 5 (8-16); ASPARTATE AMINO TRANSFERASE 11 U/L (10-37); BILIRUBIN,DIRECT 0.1 MG/DL (0-0.3); BILIRUBIN,TOTAL 0.2 MG/DL (0.1-1.0); BLOOD UREA NITROGEN 44 MG/DL (7-18); BUN/CREATININE RATIO 23.4 (10.0-20.0); CALCIUM 8.6 MG/DL (8.5-10.1); CHLORIDE 112 MMOL/L (99-107); CREATININE 1.88 MG/DL (0.40-0.90); GLUCOSE 110 MG/DL (70-104); LIPASE 125 U/L (16-77); MAGNESIUM 2.4 MG/DL (1.5-2.4); POTASSIUM 5.3 MMOL/L (3.5-5.1); SODIUM 146 MMOL/L (135-145); TOTAL CARBON DIOXIDE 28.7 MMOL/L (24-32); TOTAL PROTEIN 5.8 G/DL (6.4-8.2); eCRCL 19 ML/MIN; eGFR 25 ML/MIN
[2023-12-25 10:36] LABS: HEMATOCRIT 18.1 % (35.0-45.0); HEMOGLOBIN 5.3 g/dl (12.0-16.0)
[2023-12-25 10:40] LABS: PROTHROMBIN TIME 11.5 SECONDS (9.0-12.0)
[2023-12-25 11:01] LABS: BILIRUBIN,URINE NEGATIVE (Neg); CLARITY,URINE CLEAR (Clear); COLOR,URINE YELLOW (Yellow); GLUCOSE, URINE NEGATIVE (Neg); KETONES,URINE NEGATIVE (Neg); LEUKOCYTE ESTERASE ,URINE NEGATIVE (Neg); NITRITES, URINE NEGATIVE (Neg); OCCULT BLOOD,URINE NEGATIVE (Neg); PROTEIN,URINE NEGATIVE (Neg); UROBILINOGEN,URINE 0.2 E.U/dL (0.2-1.0)
[2023-12-25 11:05] LABS: UA COLLECTION TYPE CLN CATCH MIDSTREAM
[2023-12-25] MEDS: normal saline 1000ML IV soln IV ONE (12:50)
[2023-12-25] MEDS ORDERED: pantoprazole 40mg IV 80 MG in normal saline 100ml IV soln 100 ML IV ONE (12:50)
[2023-12-25 13:30] LABS: BASOPHILS % (AUTO) 0.5 % (0-1); EOSINOPHILS # (AUTO) 0.1 X10'3 (0-0.9); EOSINOPHILS % (AUTO) 2.1 % (0-6); LYMPHOCYTES # (AUTO) 1.7 X10'3 (1.1-4.8); MEAN CORPUSCULAR HGB CONC 30.1 g/dL (33.0-36.5); MEAN CORPUSCULAR VOLUME 89.8 FL (78-98); MEAN PLATELET VOLUME 7.3 FL (7.4-10.4); MONOCYTES # (AUTO) 0.6 X10'3 (0-0.9); NEUTROPHILS # (AUTO) 4.4 X10'3 (1.8-7.7); NEUTROPHILS % (AUTO) 64.4 % (42-75); PLATELET COUNT 234 X10'3 (140-440); RED BLOOD COUNT 2.09 X10'6 (4.20-5.60); RED CELL DISTRIBUTION WIDTH 16.8 % (11.5-14.5); WHITE BLOOD COUNT 6.9 X10'3 (4.5-11.0)
[2023-12-25 13:35] LABS: HEMOGLOBIN 5.6 g/dl (12.0-16.0)
[2023-12-25 13:36] LABS: HEMATOCRIT 18.8 % (35.0-45.0)
[2023-12-25 13:38] LABS: APTT 25 SECONDS (22-32)
[2023-12-25 13:52] LABS: OCCULT BLOOD STOOL POSITIVE (Neg)
[2023-12-25] MEDS ORDERED: APIX5TAB3 PO (14:33)
[2023-12-25] MEDS ORDERED: CARV-50 PO (14:34)
[2023-12-25] MEDS ORDERED: LISI20TA28 PO (14:37)
[2023-12-25] MEDS ORDERED: DOCU-148 PO (14:37)
[2023-12-25] MEDS: pantoprazole 40 MG vial IV ONE (15:16)
[2023-12-25] MEDS: pantoprazole 40MG/NS 100ML BAG 100 ML IV SCH (15:17)
[2023-12-25] MEDS ORDERED: potassium Cl 20 mEq SR tablet PO PRN ×2 (15:25)
[2023-12-25] MEDS ORDERED: magnesium 2GM in 50ml NS 50 ML IV PRN (15:25)
[2023-12-25] MEDS ORDERED: mag hydrox/Alum hydrox/simeth 30ml oral suspension PO PRN (15:25)
[2023-12-25] MEDS ORDERED: magnesium hydroxide 30ml (MOM) UD suspension PO PRN (15:25)
[2023-12-25] MEDS ORDERED: magnesium 4gm in 100ml NS 100 ML IV PRN (15:25)
[2023-12-25] MEDS ORDERED: acetaminophen 325mg tablet PO PRN (15:25)
[2023-12-25] MEDS ORDERED: potassium Cl 40MEQ/1/2NS 520ml 520 ML IV PRN (15:25)
[2023-12-25] MEDS ORDERED: morphine 2 MG/ML inj. syringe IV PRN (15:25)
[2023-12-25] MEDS ORDERED: magnesium Cl slow-release 64mg tablet PO PRN (15:25)
[2023-12-25] MEDS: normal saline 1000ml 1,000 ML IV ONE (15:28)
[2023-12-25] MEDS: sodium chloride 0.45% 1,000 ML IV SCH (18:00)
[2023-12-25] MEDS: K and/or MAG REPLACEMENT MC SCH (20:00)
[2023-12-25 20:58] LABS: HEMATOCRIT 26.2 % (35.0-45.0); MEAN CORPUSCULAR HEMOGLOBIN 28.2 PG (27.0-31.0); MEAN CORPUSCULAR HGB CONC 30.5 g/dL (33.0-36.5); MEAN CORPUSCULAR VOLUME 92.6 FL (78-98); PLATELET COUNT 225 X10'3 (140-440); RED BLOOD COUNT 2.83 X10'6 (4.20-5.60); RED CELL DISTRIBUTION WIDTH 16.7 % (11.5-14.5); WHITE BLOOD COUNT 6.8 X10'3 (4.5-11.0)
[2023-12-25] MEDS: docusate sod 100mg capsule PO SCH (21:19)
[2023-12-26] VITALS (18 sets, daily range): BP systolic 130–189; BP diastolic 50–89; PULSE 44–90; RESP 16–23; TEMP 97.4–98.3; O2SAT 90–100
[2023-12-26 07:06] LABS: BASOPHILS % (AUTO) 0.4 % (0-1); EOSINOPHILS # (AUTO) 0.1 X10'3 (0-0.9); EOSINOPHILS % (AUTO) 1.9 % (0-6); HEMATOCRIT 22.4 % (35.0-45.0); LYMPHOCYTES % (AUTO) 15.2 % (21-51); MEAN CORPUSCULAR HEMOGLOBIN 28.1 PG (27.0-31.0); MEAN CORPUSCULAR HGB CONC 31.2 g/dL (33.0-36.5); MEAN CORPUSCULAR VOLUME 90.1 FL (78-98); MEAN PLATELET VOLUME 6.8 FL (7.4-10.4); MONOCYTES # (AUTO) 0.6 X10'3 (0-0.9); MONOCYTES % (AUTO) 9.7 % (2-12); NEUTROPHILS # (AUTO) 4.8 X10'3 (1.8-7.7); NEUTROPHILS % (AUTO) 72.8 % (42-75); PLATELET COUNT 207 X10'3 (140-440); RED BLOOD COUNT 2.49 X10'6 (4.20-5.60); RED CELL DISTRIBUTION WIDTH 16.6 % (11.5-14.5); WHITE BLOOD COUNT 6.6 X10'3 (4.5-11.0)
[2023-12-26 07:30] LABS: ALANINE AMINOTRANSFERASE 11 U/L (12-78); ALBUMIN 2.9 G/DL (3.4-5.0); ALKALINE PHOSPHATASE 57 IU/L (46-116); ANION GAP 8 (8-16); ASPARTATE AMINO TRANSFERASE 12 U/L (10-37); BILIRUBIN,TOTAL 0.5 MG/DL (0.1-1.0); BLOOD UREA NITROGEN 38 MG/DL (7-18); BUN/CREATININE RATIO 22.2 (10.0-20.0); CALCIUM 8.1 MG/DL (8.5-10.1); CHLORIDE 114 MMOL/L (99-107); CREATININE 1.71 MG/DL (0.40-0.90); GLUCOSE 110 MG/DL (70-104); MAGNESIUM 2.3 MG/DL (1.5-2.4); POTASSIUM 5.1 MMOL/L (3.5-5.1); SODIUM 147 MMOL/L (135-145); TOTAL CARBON DIOXIDE 24.9 MMOL/L (24-32); TOTAL PROTEIN 5.8 G/DL (6.4-8.2); eCRCL 21 ML/MIN; eGFR 28 ML/MIN
[2023-12-26] MEDS: ondansetron/PF 4mg/2ml inj IV PRN (11:18)
[2023-12-26] MEDS ORDERED: LIDOcaine 2% Viscous 15ml cup ONE (12:52)
[2023-12-26] MEDS ORDERED: fentaNYL/PF 50MCG/1 ML 2ML syringe ONE (12:57)
[2023-12-26] MEDS ORDERED: MIDAZolam 1 MG/ML 5ML VIAL ONE (12:58)
[2023-12-26] MEDS: albuterol 2.5 MG/3 ML nebule NEB PRN (15:25)
[2023-12-26] MEDS ORDERED: hydrALAZINE 20mg/ml inj. IV PRN (18:25)
[2023-12-26 20:20] LABS: HEMATOCRIT 26.8 % (35.0-45.0); HEMOGLOBIN 8.4 g/dl (12.0-16.0); MEAN CORPUSCULAR HEMOGLOBIN 28.2 PG (27.0-31.0); MEAN CORPUSCULAR HGB CONC 31.4 g/dL (33.0-36.5); MEAN CORPUSCULAR VOLUME 89.5 FL (78-98); MEAN PLATELET VOLUME 7.3 FL (7.4-10.4); PLATELET COUNT 213 X10'3 (140-440); RED BLOOD COUNT 2.99 X10'6 (4.20-5.60); RED CELL DISTRIBUTION WIDTH 17.1 % (11.5-14.5); WHITE BLOOD COUNT 10.1 X10'3 (4.5-11.0)
[2023-12-27] VITALS (19 sets, daily range): BP systolic 133–148; BP diastolic 49–67; PULSE 59–86; RESP 13–26; TEMP 97.2–98.8; O2SAT 94–98
[2023-12-27 05:36] LABS: BASOPHILS % (AUTO) 0.1 % (0-1); EOSINOPHILS % (AUTO) 0.2 % (0-6); HEMATOCRIT 23.8 % (35.0-45.0); HEMOGLOBIN 7.5 g/dl (12.0-16.0); LYMPHOCYTES # (AUTO) 0.8 X10'3 (1.1-4.8); LYMPHOCYTES % (AUTO) 7.9 % (21-51); MEAN CORPUSCULAR HEMOGLOBIN 28.2 PG (27.0-31.0); MEAN CORPUSCULAR HGB CONC 31.5 g/dL (33.0-36.5); MEAN CORPUSCULAR VOLUME 89.7 FL (78-98); MEAN PLATELET VOLUME 7.4 FL (7.4-10.4); MONOCYTES # (AUTO) 1.1 X10'3 (0-0.9); MONOCYTES % (AUTO) 11.9 % (2-12); NEUTROPHILS # (AUTO) 7.7 X10'3 (1.8-7.7); NEUTROPHILS % (AUTO) 79.9 % (42-75); PLATELET COUNT 196 X10'3 (140-440); RED BLOOD COUNT 2.65 X10'6 (4.20-5.60); RED CELL DISTRIBUTION WIDTH 16.8 % (11.5-14.5); WHITE BLOOD COUNT 9.6 X10'3 (4.5-11.0)
[2023-12-27 06:08] LABS: ALANINE AMINOTRANSFERASE 12 U/L (12-78); ALBUMIN 2.9 G/DL (3.4-5.0); ALKALINE PHOSPHATASE 53 IU/L (46-116); ANION GAP 10 (8-16); ASPARTATE AMINO TRANSFERASE 15 U/L (10-37); BILIRUBIN,TOTAL 0.6 MG/DL (0.1-1.0); BLOOD UREA NITROGEN 36 MG/DL (7-18); BUN/CREATININE RATIO 23.5 (10.0-20.0); CALCIUM 8.3 MG/DL (8.5-10.1); CHLORIDE 113 MMOL/L (99-107); CREATININE 1.53 MG/DL (0.40-0.90); GLUCOSE 107 MG/DL (70-104); MAGNESIUM 2.1 MG/DL (1.5-2.4); SODIUM 148 MMOL/L (135-145); TOTAL PROTEIN 5.8 G/DL (6.4-8.2); eCRCL 23 ML/MIN; eGFR 32 ML/MIN
[2023-12-27] MEDS ORDERED: metoclopramide 5 mg/ml inj IV ONE ×2 (09:40→11:05)
[2023-12-27] MEDS: ondansetron/PF 4mg/2ml inj IV ONE (09:40)
[2023-12-27] MEDS: proCHLORperazine 10 MG/2 ml inj IV PRN (10:14)
[2023-12-27] MEDS ORDERED: calcium gluconate inj. 2 GM in normal saline 100ml IV soln 100 ML IV PRN (11:30)
[2023-12-27] MEDS ORDERED: desmopressin inj. 30 MCG in normal saline 100ml IV soln 92.5 ML IV ONE (11:30)
[2023-12-27 12:16] LABS: ABG BASE EXCESS -4.2 mmol/L (-2.0-2.0); ABG HCO3 23.7 mmol/L (22.0-26.0); ABG OXYGEN SATURATION 89.5 % (94-97); ABG PCO2 (T) 58.5 mmHg (32.0-45.0); ABG PH (T) 7.225 (7.350-7.450); ABG PO2 (T) 61.3 mmHg (75.0-100.0); ALLEN'S TEST POSITIVE; FCOHb 1.5 % (0.0-3.9); FHHb 10.3 % (0.0-5.0); FLOW 3 L/min; FMetHb 0.3 % (0.0-1.5); FO2Hb 87.9 % (94-97); MODE NASAL CANNULA; TOTAL HEMOGLOBIN 9.5 G/dl (12.0-16.0)
[2023-12-27 13:41] LABS: ABG BASE EXCESS -3.4 mmol/L (-2.0-2.0); ABG OXYGEN SATURATION 93.2 % (94-97); ABG PCO2 (T) 55.2 mmHg (32.0-45.0); ABG PH (T) 7.254 (7.350-7.450); ABG PO2 (T) 70.6 mmHg (75.0-100.0); ALLEN'S TEST POSITIVE; FCOHb 1.6 % (0.0-3.9); FHHb 6.7 % (0.0-5.0); FMetHb 0.3 % (0.0-1.5); FO2Hb 91.4 % (94-97); PATIENT TEMPERATURE 36.7; TOTAL HEMOGLOBIN 9.1 G/dl (12.0-16.0)
[2023-12-27] MEDS: metoclopramide 5 mg/ml inj IV ONE (13:57)
[2023-12-27 15:11] LABS: PRO BRAIN NATRIURETIC PEPTIDE 4652 PG/ML (0-450)
[2023-12-27 15:20] LABS: HEMOGLOBIN A1C 5.6 % (4.5-6.2)
[2023-12-27] MEDS: CALCIUM GLUC 1gm/50ml NACL,iso 100 ML IV PRN (15:21)
[2023-12-27] MEDS: furosemide 20 MG/2 ML vial IV ONE ×3 (15:22→20:52)
[2023-12-27 17:05] LABS: HEMOGLOBIN 8.1 g/dl (12.0-16.0)
[2023-12-27 17:07] LABS: BASOPHILS % (AUTO) 0.3 % (0-1); EOSINOPHILS % (AUTO) 0 % (0-6); HEMATOCRIT 25.7 % (35.0-45.0); LYMPHOCYTES % (AUTO) 11.2 % (21-51); MEAN CORPUSCULAR HEMOGLOBIN 28.6 PG (27.0-31.0); MEAN CORPUSCULAR HGB CONC 31.6 g/dL (33.0-36.5); MEAN CORPUSCULAR VOLUME 90.5 FL (78-98); MEAN PLATELET VOLUME 7.7 FL (7.4-10.4); MONOCYTES # (AUTO) 0.9 X10'3 (0-0.9); MONOCYTES % (AUTO) 10.3 % (2-12); NEUTROPHILS # (AUTO) 6.7 X10'3 (1.8-7.7); NEUTROPHILS % (AUTO) 78.2 % (42-75); PLATELET COUNT 153 X10'3 (140-440); RED BLOOD COUNT 2.84 X10'6 (4.20-5.60); RED CELL DISTRIBUTION WIDTH 16.3 % (11.5-14.5); WHITE BLOOD COUNT 8.5 X10'3 (4.5-11.0)
[2023-12-27] MEDS: desmopressin inj. 30 MCG in normal saline 100ml IV soln 100 ML IV ONE (20:52)
[2023-12-28] VITALS (13 sets, daily range): BP systolic 122–162; BP diastolic 47–62; PULSE 59–69; RESP 12–21; TEMP 97.2–99.6; O2SAT 94–99
[2023-12-28 05:47] LABS: BASOPHILS % (AUTO) 0.3 % (0-1); EOSINOPHILS # (AUTO) 0.1 X10'3 (0-0.9); EOSINOPHILS % (AUTO) 1.1 % (0-6); HEMATOCRIT 25.2 % (35.0-45.0); LYMPHOCYTES # (AUTO) 0.8 X10'3 (1.1-4.8); LYMPHOCYTES % (AUTO) 10.8 % (21-51); MEAN CORPUSCULAR HEMOGLOBIN 28.8 PG (27.0-31.0); MEAN CORPUSCULAR HGB CONC 31.8 g/dL (33.0-36.5); MEAN CORPUSCULAR VOLUME 90.5 FL (78-98); MEAN PLATELET VOLUME 7.6 FL (7.4-10.4); MONOCYTES # (AUTO) 0.8 X10'3 (0-0.9); MONOCYTES % (AUTO) 10.8 % (2-12); NEUTROPHILS # (AUTO) 5.9 X10'3 (1.8-7.7); PLATELET COUNT 171 X10'3 (140-440); RED BLOOD COUNT 2.79 X10'6 (4.20-5.60); RED CELL DISTRIBUTION WIDTH 16.7 % (11.5-14.5); WHITE BLOOD COUNT 7.6 X10'3 (4.5-11.0)
[2023-12-28 05:59] LABS: ALANINE AMINOTRANSFERASE 30 U/L (12-78); ALBUMIN 2.8 G/DL (3.4-5.0); ALKALINE PHOSPHATASE 53 IU/L (46-116); ANION GAP 9 (8-16); ASPARTATE AMINO TRANSFERASE 24 U/L (10-37); BILIRUBIN,TOTAL 0.8 MG/DL (0.1-1.0); BLOOD UREA NITROGEN 43 MG/DL (7-18); BUN/CREATININE RATIO 23.2 (10.0-20.0); CALCIUM 8.8 MG/DL (8.5-10.1); CHLORIDE 112 MMOL/L (99-107); CREATININE 1.85 MG/DL (0.40-0.90); GLUCOSE 95 MG/DL (70-104); MAGNESIUM 1.8 MG/DL (1.5-2.4); POTASSIUM 4.2 MMOL/L (3.5-5.1); PRO BRAIN NATRIURETIC PEPTIDE 10499 PG/ML (0-450); SODIUM 148 MMOL/L (135-145); TOTAL CARBON DIOXIDE 27.5 MMOL/L (24-32); TOTAL PROTEIN 5.7 G/DL (6.4-8.2); eCRCL 19 ML/MIN; eGFR 26 ML/MIN
[2023-12-28 11:22] LABS: ABG HCO3 26.4 mmol/L (22.0-26.0); ABG PCO2 (T) 50.5 mmHg (32.0-45.0); ABG PH (T) 7.332 (7.350-7.450); ABG PO2 (T) 146.3 mmHg (75.0-100.0); ALLEN'S TEST POSITIVE; FCOHb 1.3 % (0.0-3.9); FLOW 4 L/min; FMetHb 0.3 % (0.0-1.5); FO2Hb 97.4 % (94-97); MODE NASAL CANNULA; PATIENT TEMPERATURE 36.3; TOTAL HEMOGLOBIN 8.7 G/dl (12.0-16.0)
[2023-12-29] VITALS (12 sets, daily range): BP systolic 117–145; BP diastolic 47–62; PULSE 53–77; RESP 16–20; TEMP 97.7–99; O2SAT 96–99
[2023-12-29 06:31] LABS: BASOPHILS % (AUTO) 0.4 % (0-1); EOSINOPHILS # (AUTO) 0.2 X10'3 (0-0.9); HEMATOCRIT 23.7 % (35.0-45.0); HEMOGLOBIN 7.6 g/dl (12.0-16.0); LYMPHOCYTES # (AUTO) 0.9 X10'3 (1.1-4.8); LYMPHOCYTES % (AUTO) 14.8 % (21-51); MEAN CORPUSCULAR HEMOGLOBIN 28.8 PG (27.0-31.0); MEAN CORPUSCULAR HGB CONC 32.2 g/dL (33.0-36.5); MEAN CORPUSCULAR VOLUME 89.5 FL (78-98); MEAN PLATELET VOLUME 7.5 FL (7.4-10.4); MONOCYTES # (AUTO) 0.7 X10'3 (0-0.9); MONOCYTES % (AUTO) 10.8 % (2-12); NEUTROPHILS # (AUTO) 4.4 X10'3 (1.8-7.7); PLATELET COUNT 175 X10'3 (140-440); RED BLOOD COUNT 2.64 X10'6 (4.20-5.60); RED CELL DISTRIBUTION WIDTH 16.5 % (11.5-14.5); WHITE BLOOD COUNT 6.2 X10'3 (4.5-11.0)
[2023-12-29] MEDS: amiodarone 200mg tablet PO SCH (07:19)
[2023-12-29] MEDS: levoTHYROXINE 25mcg tablet PO SCH (07:20)
[2023-12-29 07:21] LABS: ALANINE AMINOTRANSFERASE 24 U/L (12-78); ALBUMIN 2.7 G/DL (3.4-5.0); ALKALINE PHOSPHATASE 48 IU/L (46-116); ANION GAP 9 (8-16); ASPARTATE AMINO TRANSFERASE 22 U/L (10-37); BILIRUBIN,TOTAL 0.7 MG/DL (0.1-1.0); BLOOD UREA NITROGEN 45 MG/DL (7-18); BUN/CREATININE RATIO 25.3 (10.0-20.0); CHLORIDE 112 MMOL/L (99-107); CREATININE 1.78 MG/DL (0.40-0.90); GLUCOSE 98 MG/DL (70-104); MAGNESIUM 1.8 MG/DL (1.5-2.4); POTASSIUM 4.3 MMOL/L (3.5-5.1); PRO BRAIN NATRIURETIC PEPTIDE 4701 PG/ML (0-450); SODIUM 150 MMOL/L (135-145); TOTAL CARBON DIOXIDE 28.7 MMOL/L (24-32); TOTAL PROTEIN 5.5 G/DL (6.4-8.2); eCRCL 20 ML/MIN; eGFR 27 ML/MIN
[2023-12-29] MEDS: dextrose 5%-water 1,000 ML IV SCH (08:18)
[2023-12-29] MEDS: furosemide 20 MG/2 ML vial IV ONE (09:07)
[2023-12-29 15:30] LABS: HEMATOCRIT 25.7 % (35.0-45.0); HEMOGLOBIN 8.2 g/dl (12.0-16.0); MEAN CORPUSCULAR HEMOGLOBIN 28.7 PG (27.0-31.0); MEAN CORPUSCULAR HGB CONC 31.8 g/dL (33.0-36.5); MEAN CORPUSCULAR VOLUME 90.2 FL (78-98); MEAN PLATELET VOLUME 7.3 FL (7.4-10.4); PLATELET COUNT 210 X10'3 (140-440); RED BLOOD COUNT 2.85 X10'6 (4.20-5.60); RED CELL DISTRIBUTION WIDTH 16.7 % (11.5-14.5); WHITE BLOOD COUNT 7.4 X10'3 (4.5-11.0)
[2023-12-30 02:00] VITALS: BP 122/40; PULSE 75; RESP 17; TEMP 97.8; O2SAT 95
[2023-12-30 08:00] VITALS: RESP 14; O2SAT 99
[2023-12-30 08:48] VITALS: PULSE 63; RESP 16; O2SAT 95
[2023-12-30 09:07] LABS: BASOPHILS % (AUTO) 0.3 % (0-1); EOSINOPHILS # (AUTO) 0.2 X10'3 (0-0.9); EOSINOPHILS % (AUTO) 3.3 % (0-6); HEMATOCRIT 23.9 % (35.0-45.0); HEMOGLOBIN 7.7 g/dl (12.0-16.0); LYMPHOCYTES # (AUTO) 1.1 X10'3 (1.1-4.8); LYMPHOCYTES % (AUTO) 18.4 % (21-51); MEAN CORPUSCULAR HGB CONC 32.3 g/dL (33.0-36.5); MEAN CORPUSCULAR VOLUME 89.9 FL (78-98); MEAN PLATELET VOLUME 7.7 FL (7.4-10.4); MONOCYTES # (AUTO) 0.7 X10'3 (0-0.9); MONOCYTES % (AUTO) 11.5 % (2-12); NEUTROPHILS # (AUTO) 3.9 X10'3 (1.8-7.7); NEUTROPHILS % (AUTO) 66.5 % (42-75); PLATELET COUNT 172 X10'3 (140-440); RED BLOOD COUNT 2.66 X10'6 (4.20-5.60); RED CELL DISTRIBUTION WIDTH 16.3 % (11.5-14.5); WHITE BLOOD COUNT 5.8 X10'3 (4.5-11.0)
[2023-12-30 09:51] LABS: ALANINE AMINOTRANSFERASE 20 U/L (12-78); ALBUMIN 2.5 G/DL (3.4-5.0); ALBUMIN/GLOBULIN RATIO 0.9 (1.1-1.5); ANION GAP 11 (8-16); ASPARTATE AMINO TRANSFERASE 16 U/L (10-37); BILIRUBIN,TOTAL 0.6 MG/DL (0.1-1.0); BLOOD UREA NITROGEN 39 MG/DL (7-18); BUN/CREATININE RATIO 24.4 (10.0-20.0); CHLORIDE 108 MMOL/L (99-107); GLUCOSE 84 MG/DL (70-104); POTASSIUM 3.8 MMOL/L (3.5-5.1); PRO BRAIN NATRIURETIC PEPTIDE 3065 PG/ML (0-450); SODIUM 147 MMOL/L (135-145); TOTAL CARBON DIOXIDE 27.8 MMOL/L (24-32); TOTAL PROTEIN 5.3 G/DL (6.4-8.2); eCRCL 22 ML/MIN; eGFR 31 ML/MIN
[2023-12-30 10:09] LABS: ALKALINE PHOSPHATASE 46 IU/L (46-116)
[2023-12-30] MEDS ORDERED: DEXL60CA6 PO (10:54)
[2023-12-30 14:07] LABS: THYROID STIMULATING HORMONE 1.18 ulU/ml (0.34-4.50)
== END 2023-12-30 12:30 | disposition home or self-care (01) | DRG 377 ==
LOC: ER 09:36 → ED HOLD 15:27 → PCU 3S 18:40
PROVIDERS: ADMIT Internal Medicine; ATTEND Internal Medicine
PROC: 30233N1 Transfusion of Nonautologous Red Blood Cells into Peripheral Vein, Percutaneous Approach (ICD-10-PCS; 2023-12-25)
PROC: 0DB78ZX Excision of Stomach, Pylorus, Via Natural or Artificial Opening Endoscopic, Diagnostic (ICD-10-PCS; principal; 2023-12-26)
PROC: 5A09357 Assistance with Respiratory Ventilation, Less than 24 Consecutive Hours, Continuous Positive Airway Pressure (ICD-10-PCS; 2023-12-27)
DX: K29.71 Gastritis, unspecified, with bleeding (principal); J96.22 Acute and chronic respiratory failure with hypercapnia; N17.0 Acute kidney failure with tubular necrosis; E87.20 Acidosis, unspecified; I13.0 Hypertensive heart and chronic kidney disease with heart failure and stage 1 through stage 4 chronic kidney disease, or unspecified chronic kidney disease; I50.32 Chronic diastolic (congestive) heart failure; K25.4 Chronic or unspecified gastric ulcer with hemorrhage; D64.9 Anemia, unspecified; I27.20 Pulmonary hypertension, unspecified; M10.9 Gout, unspecified; E11.42 Type 2 diabetes mellitus with diabetic polyneuropathy; N18.9 Chronic kidney disease, unspecified; I48.0 Paroxysmal atrial fibrillation; J44.9 Chronic obstructive pulmonary disease, unspecified; E11.22 Type 2 diabetes mellitus with diabetic chronic kidney disease; E87.8 Other disorders of electrolyte and fluid balance, not elsewhere classified; K44.9 Diaphragmatic hernia without obstruction or gangrene; E78.00 Pure hypercholesterolemia, unspecified; E03.9 Hypothyroidism, unspecified; E66.01 Morbid (severe) obesity due to excess calories; Z88.5 Allergy status to narcotic agent; Z79.01 Long term (current) use of anticoagulants; Z79.899 Other long term (current) drug therapy; Z90.710 Acquired absence of both cervix and uterus; Z85.528 Personal history of other malignant neoplasm of kidney; Z90.5 Acquired absence of kidney; Z85.6 Personal history of leukemia; Z87.891 Personal history of nicotine dependence; Z68.36 Body mass index [BMI] 36.0-36.9, adult; Z80.0 Family history of malignant neoplasm of digestive organs
CPT/HCPCS: 36415; 36430; 36600; 43239; 70450; 71045; 80048; 80053; 80076; 81003; 82272; 82803; 83036; 83690; 83735; 83880; 84443; 84484; 85018; 85025; 85027; 85610; 85730; 86885; 86900; 86901; 86920; 87081; 93005; 93306; 94640; 94660; 94760; 96374; 97161; 97530; 99152; 99285; A4615; A4620; C9113; G0378; J0610; J0780; J1940; J2250; J2405; J2597; J2765; J3010; J3490; J7030; J7040; J7050; J7070; P9016

== ENCOUNTER 2024-03-10 12:05 | Emergency (ER) | payer MEDICARE, OTHER ==
[~2024-03-10] VITALS: Ht 162.6 cm; Wt 95.5 kg
[~2024-03-10 12:05] MED LIST changes: -APIX5TAB3 PO; +BUDE10.7 INH; -CARV-50 PO; +DOCU-148 PO; -FURO-150 PO; +LISI20TA28 PO; +PANT-47 PO; -POTA-366 PO
[2024-03-10 13:12] LABS: BASOPHILS % (AUTO) 0.6 % (0-1); EOSINOPHILS # (AUTO) 0.1 X10'3 (0-0.9); EOSINOPHILS % (AUTO) 1.4 % (0-6); HEMATOCRIT 25.9 % (35.0-45.0); HEMOGLOBIN 7.9 g/dl (12.0-16.0); LYMPHOCYTES # (AUTO) 1.3 X10'3 (1.1-4.8); LYMPHOCYTES % (AUTO) 21.4 % (21-51); MEAN CORPUSCULAR HEMOGLOBIN 28.1 PG (27.0-31.0); MEAN CORPUSCULAR HGB CONC 30.6 g/dL (33.0-36.5); MEAN CORPUSCULAR VOLUME 91.9 FL (78-98); MEAN PLATELET VOLUME 8.4 FL (7.4-10.4); MONOCYTES # (AUTO) 0.7 X10'3 (0-0.9); MONOCYTES % (AUTO) 11.9 % (2-12); NEUTROPHILS % (AUTO) 64.7 % (42-75); PLATELET COUNT 187 X10'3 (140-440); RED BLOOD COUNT 2.82 X10'6 (4.20-5.60); RED CELL DISTRIBUTION WIDTH 17.4 % (11.5-14.5); WHITE BLOOD COUNT 6.3 X10'3 (4.5-11.0)
[2024-03-10 13:32] LABS: ALBUMIN 3.4 G/DL (3.4-5.0); ANION GAP 6 (8-16); BLOOD UREA NITROGEN 32 MG/DL (7-18); BUN/CREATININE RATIO 18.3 (10.0-20.0); CHLORIDE 106 MMOL/L (99-107); CREATININE 1.75 MG/DL (0.40-0.90); GLUCOSE 97 MG/DL (70-104); POTASSIUM 5.2 MMOL/L (3.5-5.1); PRO BRAIN NATRIURETIC PEPTIDE 1932 PG/ML (0-450); SODIUM 142 MMOL/L (135-145); TOTAL CARBON DIOXIDE 30.3 MMOL/L (24-32); eCRCL 20 ML/MIN; eGFR 28 ML/MIN
[2024-03-10 14:11] VITALS: BP 156/65; PULSE 52; RESP 18; TEMP 98.3; O2SAT 92
== END 2024-03-10 15:07 | disposition home or self-care (01) ==
LOC: ER 12:06
DX: M79.602 Pain in left arm (principal); Z88.8 Allergy status to other drugs, medicaments and biological substances; G62.9 Polyneuropathy, unspecified; I48.91 Unspecified atrial fibrillation; E78.00 Pure hypercholesterolemia, unspecified; I10 Essential (primary) hypertension; J45.909 Unspecified asthma, uncomplicated; J44.9 Chronic obstructive pulmonary disease, unspecified; E11.9 Type 2 diabetes mellitus without complications
CPT/HCPCS: 36415; 71045; 80048; 83880; 84484; 85025; 93005; 99285

== ENCOUNTER 2024-05-03 14:11 | Inpatient (IN) | payer MEDICARE, OTHER ==
[~2024-05-03] VITALS: Ht 162.6 cm; Wt 93.5 kg
[~2024-05-03 14:11] MED LIST changes: +sodium bicarbonate 1 mEq/ml 50ml vial IV ONE
[2024-05-03] MEDS: normal saline 1000ML IV soln IVB ONE ×2 (15:06→16:56)
[2024-05-03 15:21] LABS: BASOPHILS % (AUTO) 0.4 % (0-1); EOSINOPHILS # (AUTO) 0.1 X10'3 (0-0.9); EOSINOPHILS % (AUTO) 0.9 % (0-6); HEMATOCRIT 29.7 % (35.0-45.0); LYMPHOCYTES # (AUTO) 1.3 X10'3 (1.1-4.8); LYMPHOCYTES % (AUTO) 16.8 % (21-51); MEAN CORPUSCULAR HEMOGLOBIN 26.4 PG (27.0-31.0); MEAN CORPUSCULAR HGB CONC 30.2 g/dL (33.0-36.5); MEAN CORPUSCULAR VOLUME 87.5 FL (78-98); MEAN PLATELET VOLUME 9.3 FL (7.4-10.4); MONOCYTES # (AUTO) 0.8 X10'3 (0-0.9); MONOCYTES % (AUTO) 9.5 % (2-12); NEUTROPHILS # (AUTO) 5.7 X10'3 (1.8-7.7); NEUTROPHILS % (AUTO) 72.4 % (42-75); PLATELET COUNT 231 X10'3 (140-440); RED BLOOD COUNT 3.39 X10'6 (4.20-5.60); RED CELL DISTRIBUTION WIDTH 19.3 % (11.5-14.5); WHITE BLOOD COUNT 7.9 X10'3 (4.5-11.0)
[2024-05-03 15:32] LABS: ALBUMIN 3.3 G/DL (3.4-5.0); ANION GAP 6 (8-16); BLOOD UREA NITROGEN 86 MG/DL (7-18); BUN/CREATININE RATIO 15.5 (10.0-20.0); CALCIUM 8.9 MG/DL (8.5-10.1); CHLORIDE 103 MMOL/L (99-107); CREATININE 5.54 MG/DL (0.40-0.90); GLUCOSE 134 MG/DL (70-104); PRO BRAIN NATRIURETIC PEPTIDE 11929 PG/ML (0-450); SODIUM 136 MMOL/L (135-145); TOTAL CARBON DIOXIDE 27.4 MMOL/L (24-32); eCRCL 6 ML/MIN; eGFR 7 ML/MIN
[2024-05-03 15:38] LABS: POTASSIUM 8.6 MMOL/L (3.5-5.1); THYROID STIMULATING HORMONE 1.52 ulU/ml (0.34-4.50)
[2024-05-03] MEDS ORDERED: insulin regular, human U-100 3ml vial - multi-dose IV ONE (15:40)
[2024-05-03] MEDS: calcium chloride 100 MG/1 ML inj IV ONE ×3 (15:53→18:56)
[2024-05-03] MEDS: dextrose 50%-water 50ml dispensing syringe IV ONE ×2 (15:53→18:29)
[2024-05-03 15:56] VITALS: PULSE 35; PULSE 37; RESP 18; RESP 19; O2SAT 100; O2SAT 99
[2024-05-03] MEDS: albuterol 2.5 MG/3 ML nebule NEB ONE ×2 (15:56→18:28)
[2024-05-03] MEDS: insulin regular, human 10 units/0.1 ml syringe IV ONE ×3 (16:03→18:36)
[2024-05-03] MEDS: sodium bicarbonate (8.4%) 1 mEq/ml syringe IV ONE ×2 (16:28→18:31)
[2024-05-03] MEDS: normal saline 1000ml 1,000 ML IVB ONE (16:51)
[2024-05-03] MEDS: ringers solution, lactated 1000ml IV soln IV ONE (16:56)
[2024-05-03 17:08] LABS: ABG BASE EXCESS -4.6 mmol/L (-2.0-2.0); ABG HCO3 21.4 mmol/L (22.0-26.0); ABG OXYGEN SATURATION 93.3 % (94-97); ABG PCO2 (T) 42.8 mmHg (32.0-45.0); ABG PH (T) 7.315 (7.350-7.450); ALLEN'S TEST POSITIVE; FCOHb 0.3 % (0.0-3.9); FHHb 6.6 % (0.0-5.0); FLOW 3 L/min; FMetHb 0.5 % (0.0-1.5); FO2Hb 92.6 % (94-97); MODE NASAL CANNULA; PATIENT TEMPERATURE 36.8; TOTAL HEMOGLOBIN 9.3 G/dl (12.0-16.0)
[2024-05-03] MEDS: SODIUM ZIRCONIUM CYCLOSILICATE 10 GM POWD.PACK PO ONE (17:10)
[2024-05-03] MEDS ORDERED: acetaminophen 325mg tablet PO PRN (17:40)
[2024-05-03] MEDS ORDERED: morphine 4 MG/ML inj SYRINge IV PRN (17:40)
[2024-05-03] MEDS ORDERED: morphine 2 MG/ML inj. syringe IV PRN (17:40)
[2024-05-03 17:56] LABS: ANION GAP 4 (8-16); BLOOD UREA NITROGEN 86 MG/DL (7-18); BUN/CREATININE RATIO 16.1 (10.0-20.0); CALCIUM 9.6 MG/DL (8.5-10.1); CHLORIDE 107 MMOL/L (99-107); CREATININE 5.34 MG/DL (0.40-0.90); GLUCOSE 82 MG/DL (70-104); SODIUM 139 MMOL/L (135-145); TOTAL CARBON DIOXIDE 27.8 MMOL/L (24-32); eCRCL 7 ML/MIN; eGFR 8 ML/MIN
[2024-05-03 18:08] LABS: POTASSIUM 7.2 MMOL/L (3.5-5.1)
[2024-05-03 18:09] LABS: POTASSIUM 7.2 MMOL/L (3.5-5.1)
[2024-05-03 18:28] VITALS: PULSE 50; RESP 14; O2SAT 99
[2024-05-03] MEDS ORDERED: dextrose 50%-water 50ml dispensing syringe IV PRN (18:30)
[2024-05-03] MEDS ORDERED: sodium chloride inj. 154 MEQ in Dextrose 10%-water IV solution 961.5 ML IV SCH (18:30)
[2024-05-03 18:35] VITALS: PULSE 53; RESP 18; O2SAT 99
[2024-05-03] MEDS: normal saline 1000ml 1,000 ML IV SCH ×3 (18:36→18:55)
[2024-05-03] MEDS: Dextrose 10%-water IV solution 1,000 ML IV SCH (18:50)
[2024-05-03] MEDS: Insulin Reg/NS 100units/100mL 100 ML IV SCH (19:01)
[2024-05-03] MEDS ORDERED: ROSU5TAB43 PO (19:41)
[2024-05-03] MEDS ORDERED: CARV6.253 PO (19:41)
[2024-05-03] MEDS ORDERED: FURO20TA4 PO (19:41)
[2024-05-03] MEDS ORDERED: POTA-366 PO (19:41)
[2024-05-03] MEDS ORDERED: PANT-47 PO (20:12)
[2024-05-03 20:29] LABS: ANION GAP 4 (8-16); BLOOD UREA NITROGEN 82 MG/DL (7-18); CHLORIDE 108 MMOL/L (99-107); CREATININE 5.11 MG/DL (0.40-0.90); GLUCOSE 60 MG/DL (70-104); SODIUM 141 MMOL/L (135-145); TOTAL CARBON DIOXIDE 28.8 MMOL/L (24-32); eCRCL 7 ML/MIN; eGFR 8 ML/MIN
[2024-05-03 20:30] LABS: POTASSIUM 6.8 MMOL/L (3.5-5.1)
[2024-05-03 21:00] VITALS: BP 123/47; PULSE 54; RESP 15; RESP 16; TEMP 97.8; O2SAT 91; O2SAT 94
[2024-05-03] MEDS ORDERED: SODIUM ZIRCONIUM CYCLOSILICATE 10 GM POWD.PACK PO SCH (21:00)
[2024-05-03 21:54] LABS: BILIRUBIN,URINE NEGATIVE (Neg); CLARITY,URINE CLEAR (Clear); COLOR,URINE YELLOW (Yellow); GLUCOSE, URINE NEGATIVE (Neg); KETONES,URINE NEGATIVE (Neg); LEUKOCYTE ESTERASE ,URINE NEGATIVE (Neg); NITRITES, URINE NEGATIVE (Neg); OCCULT BLOOD,URINE NEGATIVE (Neg); PH,URINE 6.5 (4.8-8.0); PROTEIN,URINE 30 mg/dl (Neg); UROBILINOGEN,URINE 0.2 E.U/dL (0.2-1.0)
[2024-05-03] MEDS: COMMUNICATION ORDER 1 EA MISC MC SCH (21:57)
[2024-05-03] MEDS: COMMUNICATION ORDER 1 EA MISC MC ONE (21:57)
[2024-05-03 21:58] LABS: UA COLLECTION TYPE FOLEY CATH
[2024-05-03 22:00] VITALS: BP 129/52; PULSE 51; RESP 15; O2SAT 90
[2024-05-03 22:02] LABS: SODIUM,URINE RANDOM < 15 MEQ/L; TOTAL PROTEIN,URINE RANDOM 52.4 MG/DL
[2024-05-03 22:05] LABS: BACTERIA,URINE FEW /HPF (Neg); CAL OXALATE CRYSTALS 2+ /HPF (NEGATIVE); RBC,URINE 0-2 /HPF (0-2); SQUAMOUS EPITHELIAL CELL,UR FEW /LPF (FEW); WBC,URINE 0-4 /HPF (0-4)
[2024-05-03 22:06] LABS: FINE GRANULAR CAST 0-3 /LPF (NEGATIVE)
[2024-05-03] MEDS: SODIUM ZIRCONIUM CYCLOSILICATE 10 GM POWD.PACK PO SCH (22:21)
[2024-05-03] MEDS: heparin, porcine 5000 units/ml vial SQ SCH (22:21)
[2024-05-03] MEDS: famotidine 20mg tablet PO SCH (22:21)
[2024-05-03 22:45] LABS: UA EOSINOPHILS NO EOS /HPF
[2024-05-03 23:00] VITALS: BP 123/47; PULSE 53; RESP 15; O2SAT 95
[2024-05-04] VITALS (28 sets, daily range): BP systolic 101–164; BP diastolic 40–77; PULSE 46–71; RESP 10–26; TEMP 97.7–98.9; O2SAT 87–96
[2024-05-04 01:49] LABS: BASOPHILS % (AUTO) 0.4 % (0-1); EOSINOPHILS # (AUTO) 0.1 X10'3 (0-0.9); EOSINOPHILS % (AUTO) 1.6 % (0-6); HEMATOCRIT 26.4 % (35.0-45.0); LYMPHOCYTES # (AUTO) 1.3 X10'3 (1.1-4.8); LYMPHOCYTES % (AUTO) 19.9 % (21-51); MEAN CORPUSCULAR HEMOGLOBIN 26.5 PG (27.0-31.0); MEAN CORPUSCULAR HGB CONC 30.1 g/dL (33.0-36.5); MEAN CORPUSCULAR VOLUME 87.8 FL (78-98); MEAN PLATELET VOLUME 8.4 FL (7.4-10.4); MONOCYTES # (AUTO) 0.7 X10'3 (0-0.9); MONOCYTES % (AUTO) 11.7 % (2-12); NEUTROPHILS # (AUTO) 4.2 X10'3 (1.8-7.7); NEUTROPHILS % (AUTO) 66.4 % (42-75); PLATELET COUNT 189 X10'3 (140-440); RED BLOOD COUNT 3.01 X10'6 (4.20-5.60); RED CELL DISTRIBUTION WIDTH 19.4 % (11.5-14.5); WHITE BLOOD COUNT 6.3 X10'3 (4.5-11.0)
[2024-05-04 01:59] LABS: ALBUMIN 2.8 G/DL (3.4-5.0); ANION GAP 8 (8-16); BLOOD UREA NITROGEN 74 MG/DL (7-18); BUN/CREATININE RATIO 15.9 (10.0-20.0); CALCIUM 9.6 MG/DL (8.5-10.1); CHLORIDE 106 MMOL/L (99-107); CREATININE 4.65 MG/DL (0.40-0.90); GLUCOSE 113 MG/DL (70-104); PHOSPHORUS 5.8 MG/DL (2.3-4.5); POTASSIUM 5.9 MMOL/L (3.5-5.1); SODIUM 140 MMOL/L (135-145); TOTAL CARBON DIOXIDE 26.4 MMOL/L (24-32); eCRCL 8 ML/MIN; eGFR 9 ML/MIN
[2024-05-04] MEDS: SODIUM ZIRCONIUM CYCLOSILICATE 10 GM POWD.PACK PO ONE (06:40)
[2024-05-04 07:53] LABS: ALBUMIN 2.7 G/DL (3.4-5.0); ANION GAP 6 (8-16); BLOOD UREA NITROGEN 73 MG/DL (7-18); CALCIUM 9.3 MG/DL (8.5-10.1); CHLORIDE 105 MMOL/L (99-107); CREATININE 4.29 MG/DL (0.40-0.90); GLUCOSE 131 MG/DL (70-104); POTASSIUM 5.7 MMOL/L (3.5-5.1); SODIUM 137 MMOL/L (135-145); TOTAL CARBON DIOXIDE 26.4 MMOL/L (24-32); eCRCL 8 ML/MIN; eGFR 10 ML/MIN
[2024-05-04] MEDS ORDERED: famotidine/PF 10 mg/ml inj IV SCH (08:00)
[2024-05-04] MEDS: INSULIN LISPRO 100 UNIT/ML INSULN.PEN MULTI-DOSE SQ SCH (09:00)
[2024-05-04] MEDS: Dextrose 10%-water IV solution 1,000 ML IV SCH (09:00)
[2024-05-04] MEDS: normal saline 500ml IV soln 500 ML IV ONE ×6 (09:00→14:25)
[2024-05-04] MEDS: CALCIUM GLUC 1gm/50ml NACL,iso 100 ML IV ONE (09:39)
[2024-05-04] MEDS: lactulose 20gm/30ml cup PO ONE (09:39)
[2024-05-04] MEDS ORDERED: AMIO100T4 PO (11:15)
[2024-05-04] MEDS ORDERED: AMLO2.5T2 PO (11:15)
[2024-05-04] MEDS ORDERED: CYAN250010 PO (11:19)
[2024-05-04 13:10] LABS: ALBUMIN 2.9 G/DL (3.4-5.0); ANION GAP 10 (8-16); BLOOD UREA NITROGEN 60 MG/DL (7-18); BUN/CREATININE RATIO 15.7 (10.0-20.0); CALCIUM 9.2 MG/DL (8.5-10.1); CHLORIDE 106 MMOL/L (99-107); CREATININE 3.83 MG/DL (0.40-0.90); GLUCOSE 144 MG/DL (70-104); POTASSIUM 5.5 MMOL/L (3.5-5.1); SODIUM 140 MMOL/L (135-145); TOTAL CARBON DIOXIDE 24.3 MMOL/L (24-32); eCRCL 9 ML/MIN; eGFR 11 ML/MIN
[2024-05-04] MEDS: ondansetron/PF 4mg/2ml inj IV PRN (15:20)
[2024-05-04] MEDS ORDERED: famotidine 20mg tablet PO SCH (15:57)
[2024-05-04] MEDS ORDERED: famotidine 10mg tablet PO SCH (15:58)
[2024-05-04] MEDS: albuterol 2.5 MG/3 ML nebule NEB PRN (16:47)
[2024-05-04 17:13] LABS: ABG BASE EXCESS -3.1 mmol/L (-2.0-2.0); ABG HCO3 25.4 mmol/L (22.0-26.0); ABG OXYGEN SATURATION 91.4 % (94-97); ABG PCO2 (T) 64.1 mmHg (32.0-45.0); ABG PH (T) 7.215 (7.350-7.450); ABG PO2 (T) 64.5 mmHg (75.0-100.0); ALLEN'S TEST POSITIVE; FHHb 8.6 % (0.0-5.0); FLOW 4 L/min; FMetHb 0.3 % (0.0-1.5); FO2Hb 91.1 % (94-97); MODE NC; PATIENT TEMPERATURE 36.7; TOTAL HEMOGLOBIN 10.2 G/dl (12.0-16.0)
[2024-05-04 17:19] LABS: PRO BRAIN NATRIURETIC PEPTIDE 6182 PG/ML (0-450)
[2024-05-04] MEDS: furosemide 20 MG/2 ML vial IV ONE (17:46)
[2024-05-04] MEDS: ondansetron/PF 4mg/2ml inj IV ONE (17:47)
[2024-05-04 20:47] LABS: ALBUMIN 2.9 G/DL (3.4-5.0); ANION GAP 11 (8-16); BLOOD UREA NITROGEN 56 MG/DL (7-18); BUN/CREATININE RATIO 15.7 (10.0-20.0); CALCIUM 9.2 MG/DL (8.5-10.1); CHLORIDE 106 MMOL/L (99-107); CREATININE 3.57 MG/DL (0.40-0.90); GLUCOSE 141 MG/DL (70-104); POTASSIUM 5.9 MMOL/L (3.5-5.1); SODIUM 141 MMOL/L (135-145); TOTAL CARBON DIOXIDE 24.2 MMOL/L (24-32); eCRCL 10 ML/MIN; eGFR 12 ML/MIN
[2024-05-04 21:36] LABS: ABG BASE EXCESS -2.2 mmol/L (-2.0-2.0); ABG HCO3 25.2 mmol/L (22.0-26.0); ABG PCO2 (T) 56.3 mmHg (32.0-45.0); ABG PH (T) 7.268 (7.350-7.450); ABG PO2 (T) 76.7 mmHg (75.0-100.0); FCOHb 0.2 % (0.0-3.9); FMetHb 0.3 % (0.0-1.5); FO2Hb 94.5 % (94-97); MODE MASK - BIPAP; PATIENT TEMPERATURE 36.7; TOTAL HEMOGLOBIN 9.8 G/dl (12.0-16.0)
[2024-05-04] MEDS: albuterol 2.5 MG/3 ML nebule NEB SCH (21:38)
[2024-05-05] VITALS (27 sets, daily range): BP systolic 99–128; BP diastolic 33–56; PULSE 50–62; RESP 14–22; TEMP 97–98.8; O2SAT 94–98
[2024-05-05 02:40] LABS: BASOPHILS % (AUTO) 0.3 % (0-1); EOSINOPHILS % (AUTO) 0.5 % (0-6); HEMATOCRIT 26.8 % (35.0-45.0); LYMPHOCYTES # (AUTO) 0.8 X10'3 (1.1-4.8); LYMPHOCYTES % (AUTO) 9.8 % (21-51); MEAN CORPUSCULAR HEMOGLOBIN 26.4 PG (27.0-31.0); MEAN CORPUSCULAR HGB CONC 29.7 g/dL (33.0-36.5); MEAN PLATELET VOLUME 8.6 FL (7.4-10.4); MONOCYTES % (AUTO) 11.3 % (2-12); NEUTROPHILS # (AUTO) 6.7 X10'3 (1.8-7.7); NEUTROPHILS % (AUTO) 78.1 % (42-75); PLATELET COUNT 217 X10'3 (140-440); RED BLOOD COUNT 3.01 X10'6 (4.20-5.60); RED CELL DISTRIBUTION WIDTH 19.1 % (11.5-14.5); WHITE BLOOD COUNT 8.6 X10'3 (4.5-11.0)
[2024-05-05 02:53] LABS: ALANINE AMINOTRANSFERASE 20 U/L (12-78); ALBUMIN 2.7 G/DL (3.4-5.0); ALBUMIN/GLOBULIN RATIO 0.9 (1.1-1.5); ALKALINE PHOSPHATASE 66 IU/L (46-116); ANION GAP 3 (8-16); ASPARTATE AMINO TRANSFERASE 19 U/L (10-37); BILIRUBIN,TOTAL 0.4 MG/DL (0.1-1.0); BLOOD UREA NITROGEN 56 MG/DL (7-18); BUN/CREATININE RATIO 16.4 (10.0-20.0); CALCIUM 8.9 MG/DL (8.5-10.1); CHLORIDE 108 MMOL/L (99-107); CREATININE 3.41 MG/DL (0.40-0.90); GLUCOSE 103 MG/DL (70-104); MAGNESIUM 1.8 MG/DL (1.5-2.4); POTASSIUM 5.5 MMOL/L (3.5-5.1); SODIUM 139 MMOL/L (135-145); TOTAL CARBON DIOXIDE 28.3 MMOL/L (24-32); TOTAL PROTEIN 5.7 G/DL (6.4-8.2); eCRCL 10 ML/MIN; eGFR 13 ML/MIN
[2024-05-05 03:22] LABS: ANISOCYTOSIS 2+; ELLIPTOCYTES FEW; PLATELET ESTIMATE NORMAL
[2024-05-05 03:23] LABS: STOMATOCYTES FEW
[2024-05-05 07:00] LABS: ALBUMIN 2.5 G/DL (3.4-5.0); ANION GAP 6 (8-16); BLOOD UREA NITROGEN 54 MG/DL (7-18); BUN/CREATININE RATIO 16.5 (10.0-20.0); CALCIUM 8.5 MG/DL (8.5-10.1); CHLORIDE 109 MMOL/L (99-107); CREATININE 3.28 MG/DL (0.40-0.90); GLUCOSE 87 MG/DL (70-104); POTASSIUM 5.1 MMOL/L (3.5-5.1); SODIUM 142 MMOL/L (135-145); TOTAL CARBON DIOXIDE 27.4 MMOL/L (24-32); eCRCL 11 ML/MIN; eGFR 13 ML/MIN
[2024-05-05 08:11] LABS: ABG BASE EXCESS 1.2 mmol/L (-2.0-2.0); ABG HCO3 28.1 mmol/L (22.0-26.0); ABG OXYGEN SATURATION 96.6 % (94-97); ABG PCO2 (T) 56.4 mmHg (32.0-45.0); ABG PH (T) 7.313 (7.350-7.450); ABG PO2 (T) 83.9 mmHg (75.0-100.0); ALLEN'S TEST POSITIVE; FCOHb 0.2 % (0.0-3.9); FHHb 3.4 % (0.0-5.0); FMetHb 0.3 % (0.0-1.5); FO2Hb 96.1 % (94-97); MODE BiPAP; PATIENT TEMPERATURE 36.6; TOTAL HEMOGLOBIN 8.7 G/dl (12.0-16.0)
[2024-05-05] MEDS: famotidine 20mg tablet PO SCH (08:36)
[2024-05-05] MEDS: furosemide 10 MG/1 ML 10ml inj IV ONE (09:06)
[2024-05-05 15:20] LABS: ABG BASE EXCESS 1.2 mmol/L (-2.0-2.0); ABG OXYGEN SATURATION 97.9 % (94-97); ABG PCO2 (T) 56.8 mmHg (32.0-45.0); ABG PH (T) 7.311 (7.350-7.450); ABG PO2 (T) 103.7 mmHg (75.0-100.0); ALLEN'S TEST POSITIVE; FCOHb 0.5 % (0.0-3.9); FHHb 2.1 % (0.0-5.0); FLOW 4 L/min; FMetHb 0.3 % (0.0-1.5); FO2Hb 97.1 % (94-97); MODE NC; PATIENT TEMPERATURE 37.1; TOTAL HEMOGLOBIN 8.7 G/dl (12.0-16.0)
[2024-05-06] VITALS (17 sets, daily range): BP systolic 119–154; BP diastolic 44–62; PULSE 53–68; RESP 13–23; TEMP 97.3–98.3; O2SAT 93–99
[2024-05-06 06:46] LABS: BASOPHILS % (AUTO) 0.3 % (0-1); EOSINOPHILS # (AUTO) 0.1 X10'3 (0-0.9); EOSINOPHILS % (AUTO) 2.1 % (0-6); HEMATOCRIT 24.5 % (35.0-45.0); HEMOGLOBIN 7.5 g/dl (12.0-16.0); LYMPHOCYTES % (AUTO) 17.3 % (21-51); MEAN CORPUSCULAR HEMOGLOBIN 26.6 PG (27.0-31.0); MEAN CORPUSCULAR HGB CONC 30.5 g/dL (33.0-36.5); MEAN CORPUSCULAR VOLUME 87.1 FL (78-98); MEAN PLATELET VOLUME 8.3 FL (7.4-10.4); MONOCYTES # (AUTO) 0.8 X10'3 (0-0.9); NEUTROPHILS # (AUTO) 3.7 X10'3 (1.8-7.7); NEUTROPHILS % (AUTO) 66.3 % (42-75); PLATELET COUNT 198 X10'3 (140-440); RED BLOOD COUNT 2.82 X10'6 (4.20-5.60); RED CELL DISTRIBUTION WIDTH 18.5 % (11.5-14.5); WHITE BLOOD COUNT 5.5 X10'3 (4.5-11.0)
[2024-05-06 06:57] LABS: ALANINE AMINOTRANSFERASE 20 U/L (12-78); ALBUMIN 2.3 G/DL (3.4-5.0); ALBUMIN/GLOBULIN RATIO 0.7 (1.1-1.5); ALKALINE PHOSPHATASE 60 IU/L (46-116); ANION GAP 5 (8-16); ASPARTATE AMINO TRANSFERASE 15 U/L (10-37); BILIRUBIN,TOTAL 0.6 MG/DL (0.1-1.0); BLOOD UREA NITROGEN 46 MG/DL (7-18); BUN/CREATININE RATIO 16.3 (10.0-20.0); CALCIUM 8.6 MG/DL (8.5-10.1); CHLORIDE 107 MMOL/L (99-107); CREATININE 2.82 MG/DL (0.40-0.90); GLUCOSE 81 MG/DL (70-104); MAGNESIUM 1.5 MG/DL (1.5-2.4); PHOSPHORUS 4.3 MG/DL (2.3-4.5); POTASSIUM 4.2 MMOL/L (3.5-5.1); SODIUM 143 MMOL/L (135-145); TOTAL PROTEIN 5.4 G/DL (6.4-8.2); eCRCL 13 ML/MIN; eGFR 16 ML/MIN
[2024-05-06] MEDS: levoTHYROXINE 25mcg tablet PO SCH (07:00)
[2024-05-06 09:36] LABS: FERRITIN 92 NG/ML (8-252)
[2024-05-06 10:01] LABS: % IRON SATURATION 6 % (11-46); IRON 16 UG/DL (49-151); TOTAL IRON BINDING CAPACITY 250 UG/DL (259-388)
[2024-05-06] MEDS: lisinopril 5mg tablet PO SCH (10:50)
[2024-05-06 11:17] LABS: ABG BASE EXCESS 7.4 mmol/L (-2.0-2.0); ABG HCO3 33.6 mmol/L (22.0-26.0); ABG OXYGEN SATURATION 97.3 % (94-97); ABG PCO2 (T) 57.8 mmHg (32.0-45.0); ABG PH (T) 7.382 (7.350-7.450); ALLEN'S TEST POSITIVE; FCOHb 0.3 % (0.0-3.9); FHHb 2.7 % (0.0-5.0); FLOW 3 L/min; FMetHb 0.3 % (0.0-1.5); FO2Hb 96.7 % (94-97); MODE NASAL CANNULA; PATIENT TEMPERATURE 36.8; TOTAL HEMOGLOBIN 8.6 G/dl (12.0-16.0)
[2024-05-06] MEDS: carVEDilol 3.125mg tablet PO SCH (20:00)
[2024-05-06] MEDS: gabapentin 100mg capsule PO SCH (20:46)
[2024-05-06] MEDS: bisacodyl 10mg suppository rectal RC SCH (21:33)
[2024-05-06] MEDS: polyethylene glycol 3350 17gm powd pack PO SCH (21:46)
[2024-05-07] VITALS (9 sets, daily range): BP systolic 142–182; BP diastolic 58–66; PULSE 54–64; RESP 15–21; TEMP 97.5–98; O2SAT 92–97
[2024-05-07] MEDS: furosemide 20MG tablet PO SCH (07:13)
[2024-05-07] MEDS: atorvastatin 20mg tablet PO SCH (07:15)
[2024-05-07] MEDS: sodium ferric gluc complex inj 125 MG in normal saline 100ml IV soln 100 ML IV SCH (07:23)
[2024-05-07 07:24] LABS: BASOPHILS % (AUTO) 0.3 % (0-1); EOSINOPHILS # (AUTO) 0.2 X10'3 (0-0.9); EOSINOPHILS % (AUTO) 2.6 % (0-6); HEMATOCRIT 26.6 % (35.0-45.0); HEMOGLOBIN 8.1 g/dl (12.0-16.0); LYMPHOCYTES % (AUTO) 13.8 % (21-51); MEAN CORPUSCULAR HEMOGLOBIN 26.4 PG (27.0-31.0); MEAN CORPUSCULAR HGB CONC 30.3 g/dL (33.0-36.5); MEAN CORPUSCULAR VOLUME 87.1 FL (78-98); MEAN PLATELET VOLUME 8.1 FL (7.4-10.4); MONOCYTES # (AUTO) 0.9 X10'3 (0-0.9); MONOCYTES % (AUTO) 12.7 % (2-12); NEUTROPHILS # (AUTO) 5.1 X10'3 (1.8-7.7); NEUTROPHILS % (AUTO) 70.6 % (42-75); PLATELET COUNT 243 X10'3 (140-440); RED BLOOD COUNT 3.06 X10'6 (4.20-5.60); RED CELL DISTRIBUTION WIDTH 19.6 % (11.5-14.5); WHITE BLOOD COUNT 7.3 X10'3 (4.5-11.0)
[2024-05-07 07:47] LABS: ALANINE AMINOTRANSFERASE 22 U/L (12-78); ALBUMIN 2.7 G/DL (3.4-5.0); ALBUMIN/GLOBULIN RATIO 0.8 (1.1-1.5); ALKALINE PHOSPHATASE 69 IU/L (46-116); ANION GAP 5 (8-16); ASPARTATE AMINO TRANSFERASE 18 U/L (10-37); BILIRUBIN,TOTAL 0.6 MG/DL (0.1-1.0); BLOOD UREA NITROGEN 39 MG/DL (7-18); CALCIUM 9.1 MG/DL (8.5-10.1); CHLORIDE 108 MMOL/L (99-107); CREATININE 2.29 MG/DL (0.40-0.90); GLUCOSE 87 MG/DL (70-104); MAGNESIUM 1.6 MG/DL (1.5-2.4); PHOSPHORUS 3.1 MG/DL (2.3-4.5); POTASSIUM 4.2 MMOL/L (3.5-5.1); SODIUM 144 MMOL/L (135-145); TOTAL CARBON DIOXIDE 30.9 MMOL/L (24-32); TOTAL PROTEIN 5.9 G/DL (6.4-8.2); eCRCL 16 ML/MIN; eGFR 20 ML/MIN
[2024-05-07 08:20] LABS: ANISOCYTOSIS 2+; HYPOCHROMASIA 1+; PLATELET ESTIMATE NORMAL; POLYCHROMASIA FEW
[2024-05-07 08:21] LABS: POIKILOCYTOSIS FEW
== END 2024-05-07 14:04 | disposition home or self-care (01) | DRG 682 ==
LOC: ER 14:12 → ED HOLD 17:48 → CICU 2S 20:51 → PCU 3S 05-04 14:57
PROVIDERS: ADMIT Internal Medicine Critical Care Medicine; ATTEND Internal Medicine Critical Care Medicine
PROC: 5A09357 Assistance with Respiratory Ventilation, Less than 24 Consecutive Hours, Continuous Positive Airway Pressure (ICD-10-PCS; principal; 2024-05-04)
PROC: 5A09357 Assistance with Respiratory Ventilation, Less than 24 Consecutive Hours, Continuous Positive Airway Pressure (ICD-10-PCS; 2024-05-05)
PROC: 5A09357 Assistance with Respiratory Ventilation, Less than 24 Consecutive Hours, Continuous Positive Airway Pressure (ICD-10-PCS; 2024-05-06)
DX: N17.9 Acute kidney failure, unspecified (principal); I50.31 Acute diastolic (congestive) heart failure; J96.20 Acute and chronic respiratory failure, unspecified whether with hypoxia or hypercapnia; I13.0 Hypertensive heart and chronic kidney disease with heart failure and stage 1 through stage 4 chronic kidney disease, or unspecified chronic kidney disease; E87.5 Hyperkalemia; I27.21 Secondary pulmonary arterial hypertension; D64.9 Anemia, unspecified; E11.42 Type 2 diabetes mellitus with diabetic polyneuropathy; E11.22 Type 2 diabetes mellitus with diabetic chronic kidney disease; N18.4 Chronic kidney disease, stage 4 (severe); Z96.651 Presence of right artificial knee joint; E03.9 Hypothyroidism, unspecified; I48.91 Unspecified atrial fibrillation; J44.9 Chronic obstructive pulmonary disease, unspecified; E78.00 Pure hypercholesterolemia, unspecified; Z90.5 Acquired absence of kidney; Z85.528 Personal history of other malignant neoplasm of kidney; Z85.6 Personal history of leukemia; Z87.891 Personal history of nicotine dependence; Z90.710 Acquired absence of both cervix and uterus; Z88.5 Allergy status to narcotic agent; Z79.899 Other long term (current) drug therapy
CPT/HCPCS: 36415; 36600; 71045; 76770; 80048; 80053; 80069; 81001; 82570; 82728; 82803; 82948; 83540; 83550; 83735; 83880; 84100; 84132; 84156; 84300; 84443; 84484; 85008; 85018; 85025; 86885; 86900; 86901; 87081; 87207; 93005; 93306; 93971; 94640; 94660; 94760; 96374; 96375; 97116; 97161; 97530; 99291; A6449; C1752; C1758; G0378; J0610; J1644; J1815; J1940; J2405; J2916; J3490; J7030; J7040; J7120

== ENCOUNTER 2024-11-18 06:57 | Day surgery (SDC) | payer MEDICARE, OTHER ==
[2024-11-17 12:00] LABS: BASOPHILS % (AUTO) 0.4 % (0-1); EOSINOPHILS # (AUTO) 0.2 X10'3 (0-0.9); EOSINOPHILS % (AUTO) 3.7 % (0-6); HEMATOCRIT 36.6 % (35.0-45.0); HEMOGLOBIN 11.8 g/dl (12.0-16.0); LYMPHOCYTES # (AUTO) 1.3 X10'3 (1.1-4.8); LYMPHOCYTES % (AUTO) 22.5 % (21-51); MEAN CORPUSCULAR HEMOGLOBIN 30.5 PG (27.0-31.0); MEAN CORPUSCULAR HGB CONC 32.1 g/dL (33.0-36.5); MEAN CORPUSCULAR VOLUME 94.8 FL (78-98); MEAN PLATELET VOLUME 8.2 FL (7.4-10.4); MONOCYTES # (AUTO) 0.7 X10'3 (0-0.9); MONOCYTES % (AUTO) 12.6 % (2-12); NEUTROPHILS # (AUTO) 3.5 X10'3 (1.8-7.7); NEUTROPHILS % (AUTO) 60.8 % (42-75); PLATELET COUNT 168 X10'3 (140-440); RED BLOOD COUNT 3.86 X10'6 (4.20-5.60); RED CELL DISTRIBUTION WIDTH 15.3 % (11.5-14.5); WHITE BLOOD COUNT 5.7 X10'3 (4.5-11.0)
[2024-11-17 12:07] LABS: ALBUMIN 3.2 G/DL (3.4-5.0); ANION GAP 4 (8-16); BLOOD UREA NITROGEN 32 MG/DL (7-18); BUN/CREATININE RATIO 17.7 (10.0-20.0); CALCIUM 9.2 MG/DL (8.5-10.1); CHLORIDE 108 MMOL/L (99-107); CREATININE 1.81 MG/DL (0.40-0.90); GLUCOSE 98 MG/DL (70-104); POTASSIUM 4.2 MMOL/L (3.5-5.1); SODIUM 147 MMOL/L (135-145); TOTAL CARBON DIOXIDE 35.2 MMOL/L (24-32); eGFR 27 ML/MIN
[2024-11-17 12:36] LABS: INR 1.1 INR; PROTHROMBIN TIME 11.4 SECONDS (9.0-12.0)
[~2024-11-18] VITALS: Ht 162.6 cm; Wt 90.2 kg
[2024-11-18] VITALS (12 sets, daily range): BP systolic 102–146; BP diastolic 54–93; PULSE 54–129; RESP 12–18; TEMP 98.4; O2SAT 92–98
[~2024-11-18 06:57] MED LIST changes: +AMIO100T4 PO; -AMIO200T27 PO; +AMLO2.5T2 PO; -BUDE10.7 INH; -CALC0.2535 PO; +CARV6.253 PO; -CYAN-104 PO; +CYAN250010 PO; +FURO20TA4 PO; -PANT-47 PO; -ROSU5TAB PO; +ROSU5TAB51 PO; -sodium bicarbonate 1 mEq/ml 50ml vial IV ONE
[2024-11-18] MEDS ORDERED: amiodarone 150mg/dext, iso-os 100 ML IV ONE (07:15)
[2024-11-18] MEDS ORDERED: LORazepam 0.5 MG tablet PO ONE (07:15)
[2024-11-18] MEDS ORDERED: diphenhydrAMINE 25mg capsule PO ONE (07:15)
[2024-11-18] MEDS ORDERED: atropine 0.1mg/ml 10ml syringe IV ONE (07:15)
[2024-11-18] MEDS ORDERED: LISI10TA27 PO (07:49)
[2024-11-18] MEDS ORDERED: APIX2.5T PO (07:49)
[2024-11-18] MEDS ORDERED: [UNRECOGNIZED DRUG - CODE] TOP (07:52)
[2024-11-18] MEDS ORDERED: enoxaparin 100mg/ml syringe SUBCUT ONE (08:15)
[2024-11-18] MEDS: enoxaparin 30mg/0.3ml syringe SUBCUT ONE (08:59)
[2024-11-18] MEDS: enoxaparin 60mg/0.6ml syringe SUBCUT ONE (09:00)
[2024-11-18] MEDS: normal saline 1000ml 1,000 ML IV SCH (09:01)
[2024-11-18] MEDS: morphine 10mg/ml inj. IV ONE (10:02)
[2024-11-18] MEDS: MIDAZolam 1mg/ml 10ml vial IV ONE (10:02)
== END 2024-11-18 11:37 | disposition home or self-care (01) ==
LOC: SSTAY O 06:57
PROVIDERS: ATTEND Internal Medicine Cardiovascular Disease
DX: I48.0 Paroxysmal atrial fibrillation (principal); I48.92 Unspecified atrial flutter; I44.7 Left bundle-branch block, unspecified; I44.1 Atrioventricular block, second degree; I25.2 Old myocardial infarction; I11.0 Hypertensive heart disease with heart failure; I50.32 Chronic diastolic (congestive) heart failure; E78.5 Hyperlipidemia, unspecified; E11.9 Type 2 diabetes mellitus without complications; Z78.0 Asymptomatic menopausal state; Z95.0 Presence of cardiac pacemaker
CPT/HCPCS: 36415; 80048; 85025; 85610; 92960; 93005; J1650; J2250; J2270; J7030; J2274

== ENCOUNTER 2025-02-24 07:21 | Day surgery (SDC) | payer MEDICARE, OTHER ==
[~2025-02-24] VITALS: Ht 162.6 cm; Wt 88.4 kg
[~2025-02-24 07:21] MED LIST changes: -ALLO100T PO; +AMI200T PO; -AMLO2.5T2 PO; +APIX2.5T PO; -CHOL10002 PO; -CYAN250010 PO; -DOCU-148 PO; -LIOT5TAB10 PO; +LISI10TA27 PO; -LISI20TA28 PO; +[UNRECOGNIZED DRUG - CODE] TOP
[2025-02-24 08:23] VITALS: BP 154/59; PULSE 55; RESP 19
[2025-02-24] MEDS ORDERED: fentaNYL/PF 50MCG/1 ML 2ML syringe ONE (09:00)
[2025-02-24] MEDS ORDERED: propofol 10mg/ml 20ml vial IV ONE (09:16)
[2025-02-24] MEDS ORDERED: hydrALAZINE 20mg/ml inj. ONE (09:38)
[2025-02-24 09:45] VITALS: BP 165/76; PULSE 66; RESP 20; O2SAT 98
[2025-02-24 09:55] VITALS: BP 152/74; PULSE 64; RESP 21; O2SAT 98
[2025-02-24 10:05] VITALS: BP 147/68; PULSE 64; RESP 18; O2SAT 99
[2025-02-24 10:15] VITALS: BP 145/66; PULSE 65; RESP 16; O2SAT 98
== END 2025-02-24 10:30 | disposition home or self-care (01) ==
LOC: GI LAB 07:21
PROVIDERS: ATTEND Internal Medicine Gastroenterology
DX: K92.1 Melena (principal); K64.8 Other hemorrhoids; K57.30 Diverticulosis of large intestine without perforation or abscess without bleeding; E11.9 Type 2 diabetes mellitus without complications; Z79.899 Other long term (current) drug therapy; Z88.6 Allergy status to analgesic agent; Z96.652 Presence of left artificial knee joint; Z90.5 Acquired absence of kidney; Z85.6 Personal history of leukemia; Z87.891 Personal history of nicotine dependence
CPT/HCPCS: 45378; 82948; A4620; J0360; J2704; J3010; J7030; J7070; Z7512; J7040

== ENCOUNTER 2025-05-25 07:28 | Day surgery (SDC) | payer MEDICARE, OTHER ==
[2025-05-24 12:39] LABS: MEAN PLATELET VOLUME 9.0 FL (7.4-10.4); RED CELL DISTRIBUTION WIDTH 14.1 % (11.5-14.5)
[2025-05-24 12:45] LABS: CREATININE 2.10 MG/DL (0.40-0.90); TOTAL CARBON DIOXIDE 31.0 MMOL/L (24-32); eGFR 22 ML/MIN
[2025-05-24 12:49] LABS: APTT 27 SECONDS (22-32); INR 1.0 INR
[2025-05-25] VITALS (14 sets, daily range): BP systolic 104–143; BP diastolic 52–71; PULSE 50–71; RESP 14–19; TEMP 97.6; O2SAT 90–98
[~2025-05-25] VITALS: Ht 162.6 cm; Wt 92.6 kg
[~2025-05-25 07:28] MED LIST changes: -AMI200T PO; +AMIO200T76 PO; +normal saline 1000ml 1,000 ML IV SCH
[2025-05-25] MEDS ORDERED: ceFAZolin 2gm/dext,iso 50mL 50 ML IV ONE ×2 (08:05→08:12)
--- NOTE | 2025-05-25 08:17 | ELECTROCARDIOGRAPH REPORT ---
[facility] Test Date: 2025-05-25 Test Time: 08:15:59 Pat Name: BRANDON ARROYO Department: [facility] Patient ID: [facility]-[id number] Room: Gender: F Access Clinician: SAMEER : 1940 Requested By: MATILDE MIKE Order Number: [id number] Reading MD: Dr. TALAT Mike Measurements Intervals [place] Rate: 49 P: 59 KS: 195 QRS: 20 QRSD: 115 T: 48 QT: 541 QTc: 489 Interpretive Statements Sinus bradycardia Nonspecific intraventricular conduction delay Inferior infarct, old Anterior infarct, old Electronically Signed On 05-27-2025 20:17:[address] TALAT Mike Please click the below link to view image of tracing.
[2025-05-25] MEDS ORDERED: AMLO5TAB16 PO (08:23)
[2025-05-25] MEDS ORDERED: CHOL100046 PO (08:23)
[2025-05-25] MEDS ORDERED: CYAN-116 PO (08:23)
[2025-05-25] MEDS ORDERED: GABA300C PO (08:23)
[2025-05-25] MEDS: normal saline 1000ml 1,000 ML IV SCH (08:55)
[2025-05-25] MEDS ORDERED: LIDOcaine 1% W/epiNEPHrine 1:100,000 20ml vial ONE (10:55)
[2025-05-25] MEDS ORDERED: midazolam 1 mg/ML 2ml injection ONE ×3 (10:55→12:18)
[2025-05-25] MEDS ORDERED: fentaNYL/PF 50MCG/1 ML 2ML syringe ONE (10:56)
[2025-05-25] MEDS ORDERED: iohexol 350 MG/ML 50ML vial IV ONE (11:29)
[2025-05-25] MEDS ORDERED: hydrALAZINE 20mg/ml inj. ONE (11:46)
[2025-05-25] MEDS ORDERED: HYDROcodone/acetaminophen 5mg/325mg tablet PO PRN (13:50)
[2025-05-25] MEDS ORDERED: HYDROcodone/acetaminophen 10/325mg tab PO PRN (13:50)
--- NOTE | 2025-05-25 15:35 | RADIOLOGY REPORT ---
DI CHEST,TWO VIEWS CLINICAL HISTORY: S/P PACEMAKER COMPARISON: DI CHEST,SINGLE VIEW on DOS: 05/04/24, DI CHEST,SINGLE VIEW on DOS: 05/03/24, DI CHEST,SING LE VIEW on DOS: 04/21/24, DI CHEST,SINGLE VIEW on DOS: 03/10/24, DI CHEST,SINGLE VIEW on DOS: 12/28/23 TECHNIQUE: Frontal and lateral view of the chest was obtained FINDINGS: Lines and Tubes: Left-sided pacemaker. Surgical skin gladys are present Lungs: No focal consolidation. Pleura: No effusion. No pneumothorax. Cardiomediastinal contours: Unremarkable Bones: No acute osseous abnormality. IMPRESSION: No acute cardiopulmonary disease.
[2025-05-25] MEDS: vancomycin/NS 1 GM ADD-VANTAGE 250 ML X 1 DOSE IV ONE (15:38)
[2025-05-25] MEDS ORDERED: CEPH-585 PO (18:53)
--- NOTE | 2025-05-26 09:10 | CARDIOLOGY REPORT ---
DATE OF SERVICE: 05/25/2025 DICTATING PHYSICIAN: TALAT Johnston MD PERMANENT PACEMAKER IMPLANTATION REPORT: GENDER: Female. AGE: 84. HEIGHT: 162 cm. WEIGHT: 92.2 kg. BODY SURFACE AREA: 1.96 m2. PRIMARY PHYSICIAN: Viky Chakraborty PA-C DISPOSAL WORKER: TALAT Johnston MD INDICATION: The patient is an 84-year-old postmenopausal female with history of hypertension, hyperlipidemia, diastolic heart failure and sick sinus syndrome. The patient has history of PAF since 2019, which was managed medically. The patient developed sick sinus syndrome with episodes of bradycardia. The patient had event monitoring on 03/12/2025, which showed lowest heart rate of 47 and episodes of SVT. The patient continues to have exertional fatigue, tiredness, dizziness and symptomatic bradycardia. After discussing risks, benefits and alternative options, the patient prefers to proceed with a permanent pacemaker implantation. Risks, benefits and alternative options were discussed. Informed consent obtained. PROCEDURES DONE: * Fluoroscopy. * AV sequential pacemaker implantation. * Conscious sedation of 90 minutes. DESCRIPTION OF PROCEDURE: Left infraclavicular area was prepped and draped in the usual fashion. Using percutaneous Seldinger technique, 2 micropuncture wires were positioned in the left subclavian vein. They were replaced with J-wires. A horizontal incision was placed in the left infraclavicular area. Using blunt dissection and electrocautery, subcutaneous pacemaker pocket was fashioned. External ends of the J-wires were retrieved into the pacemaker pocket. Two 7-Spanish sheaths were advanced over the J-wires. Through one of them; however, because of the acute angle of the left subclavian vein a long sheath. RV lead was advanced to the RV apex, screwed into the RV apex. Appropriate pacing and sensing thresholds were achieved. Appropriate placing and sensing thresholds obtained. Sheath removed by a peel-away technique and lead anchored to the subcutaneous tissue with Ethibond. Through the second 7-Spanish sheath, right atrial lead was advanced into the right atrium. J-wire was formed, screwed into the right atrial appendage. Appropriate pacing and sensing thresholds obtained. Sheath removed by peel-away technique and lead anchored to subcutaneous tissue with Ethibond. Leads connected to appropriate sockets of the pulse generator. Set screws were tightened. Tug test performed. Pacemaker was suspended into the pacemaker pocket. The pocket was irrigated with copious antibiotic solution. pocket. Pocket closed with continuous 0 Vicryl followed by interrupted 2-0 Vicryl. Skin approximated with staple. Pressure dressing was applied. The patient tolerated the procedure well with no complications. DEVICE USED: Medtronic MRI compatible, Wenden PPM, model #W3DR01, serial #[id number], Medtronic, 05/25/2025, left pectoral location. RIGHT ATRIAL LEAD: Model #5076, 52 cm long, serial #[id number], Medtronic,05/25/2025, right atrial appendage. P-wave amplitude 2.4 millivolts, 437 ohms of impedance, pacing threshold 2.75 at 0.4 milliseconds. RV LEAD: Model #5076, 58 cm long, serial #[id number], Medtronic, 05/25/2025, RV apex. P-wave amplitude of 8 millivolts, 703 ohms of impedance, pacing threshold 0.75 at 0.4 milliseconds. IMPRESSION: An 84-year-old female with sick sinus syndrome with tachybrady episodes underwent successful AV sequential pacemaker implantation without complication. TALAT Johnston MD TID: [id number] RECEIPT: TANYA/GALA cc: ANGELES Sam
== END 2025-05-25 19:30 | disposition home or self-care (01) ==
LOC: SSTAY O 07:28
PROVIDERS: ATTEND Internal Medicine Cardiovascular Disease
DX: I49.5 Sick sinus syndrome (principal); I10 Essential (primary) hypertension; E78.5 Hyperlipidemia, unspecified; I48.0 Paroxysmal atrial fibrillation; I11.0 Hypertensive heart disease with heart failure; I50.32 Chronic diastolic (congestive) heart failure; Z79.01 Long term (current) use of anticoagulants; Z90.710 Acquired absence of both cervix and uterus; Z98.890 Other specified postprocedural states; Z79.899 Other long term (current) drug therapy
CPT/HCPCS: 33208; 36415; 71046; 80048; 85025; 85610; 85730; 93005; 99152; 99153; A4565; A4615; A6258; A6402; C1785; C1898; J0360; J0690; J1200; J2250; J3010; J3373; J3490; J7030; Z7610; A6449; Q9967

== ENCOUNTER 2025-06-03 10:27 | Emergency (ER) | payer MEDICARE, OTHER ==
[~2025-06-03] VITALS: Ht 162.6 cm; Wt 92.7 kg
[~2025-06-03 10:27] MED LIST changes: -AMIO200T76 PO; +AMLO5TAB16 PO; +CHOL100046 PO; +CYAN-116 PO; -GABA-532 PO; +GABA300C PO; -[UNRECOGNIZED DRUG - CODE] TOP; -normal saline 1000ml 1,000 ML IV SCH
[2025-06-03 10:53] VITALS: BP 142/64; PULSE 65; RESP 15; O2SAT 95
--- NOTE | 2025-06-03 11:26 | Physician Documentation ---
History of Present Illness ~ General Chief Complaint: Post-operative complication Stated Complaint: POST OP COMPLICATIONS Time Seen by MD: 11:11 Primary Medical Doctor: BRIEN Source: patient, family Mode of Arrival: POV Exam Limitations: no limitations History of Present Illness Initial Comments 84-year-old female had recent pacemaker placement on May 25, 2025 did have a reaction to the adhesive and bandage placed and noticed some increased swelling near the surgical site. Patient was concerned of infection and tried to go into her magnetic prospecting operator but was too busy to be seeing they instructed her to come to the ER to evaluate if there was any infection. Patient denies any redness swelling or fevers. No other acute concerns patient's next cardiology follow up is June 20, 2025 Medication Reconciliation Allergies: Coded Allergies: codeine (Verified Allergy, Unknown, RASH, 07/03/23) Scheduled Amiodarone HCl (Amiodarone HCl), 1 TAB PO DAILY, (Reported) Amlodipine Besylate (Amlodipine Besylate), 1 TAB PO DAILY, (Reported) Apixaban (Eliquis), 1 TAB PO Q12H, (Reported) Carvedilol (Carvedilol), 1 TAB PO DAILY, (Reported) Cholecalciferol (Vitamin D3) (Vitamin D3), 1 CAP PO DAILY, (Reported) Cyanocobalamin (Vitamin B-12) (Vitamin B12), 1 TAB PO DAILY, (Reported) Furosemide (Furosemide), 1 TAB PO DAILY, (Reported) Gabapentin (Neurontin), 1 CAP PO DAILY, (Reported) Levothyroxine Sodium (Levothyroxine Sodium), 1 TAB PO QAM, (Reported) Lisinopril (Lisinopril), 1 TAB PO DAILY, (Reported) Rosuvastatin Calcium (Rosuvastatin Calcium), 1 TAB PO DAILY, (Reported) Discontinued Medications Cephalexin*Monohydrate* (Keflex*), 1 CAP PO Q6H Discontinued Reason: Auto Discontinued Past Medical History Past Medical History: Peripheral Neuropathy, Atrial Fibrillation, High Cholesterol, Hypertension, Asthma, COPD, Diabetes, Leukemia Past Surgical History: orthopedic surgeries Other Past Surgical History: nephrectomy Alcohol Use: None Drug Use: none Lives with: Spouse Lives In: Home Occupation: retired Review of Systems All Other Systems at this time: Reviewed and Negative Physical Exam Physical Exam Vital Signs: Temperature: 97.3, Source: Oral, Heart Rate: 65, Respiratory Rate: 15, BP: 142/64, Pulse Oximetry: 95, Weight: 92.730 General Appearance: alert, WD/WN, no apparent distress Respiratory: lungs clear, normal breath sounds, no respiratory distress Chest: no accessory muscle use, chest non-tender Cardiovascular: normal peripheral pulses, regular rate, rhythm, no murmur; No: JVD Back: normal inspection, no CVA tenderness; No: swelling Progress Results/Orders Results/Orders Vital Signs 06/03/25 06/03/25 10:53 11:31 Temp 97.3 97.3 Pulse 65 Resp 15 B/P (MAP) 142/64 Pulse Ox 95 Medical Decision Making Findings Medications prescribed discussed warning signs and symptoms that require higher level of care including alcohol withdrawal symptoms including seizures. Patient will follow up discussed and educated on resources for rehab Departure Time of Disposition: 11:24 Disposition: 01 HOME / SELF CARE / HOMELESS Impression: Primary Impression: General medical exam Condition: Stable Additional Instructions: Maintain appointment with magnetic prospecting operator. Continue to monitor for any signs of infection including redness drainage or warmth. Feel free to return to the ER for any new or worsening symptoms Referrals: NO PRIMARY CARE PROVIDER (PCP) Education Educated: Patient Educated regarding: diagnosis, treatment, need for follow up Signature Scribe Signature: No Scribe Attestation: The note accurately reflects work and decisions made by me.Marii GOLDBERG 06/03/25 11:26 MARII HASTINGS NP Jun 03, 2025 11:26
[2025-06-03 11:31] VITALS: TEMP 97.3
== END 2025-06-03 11:32 | disposition home or self-care (01) ==
LOC: ER 10:28
DX: Z00.8 Encounter for other general examination (principal); E11.42 Type 2 diabetes mellitus with diabetic polyneuropathy; E78.00 Pure hypercholesterolemia, unspecified; I10 Essential (primary) hypertension; I48.91 Unspecified atrial fibrillation; J44.9 Chronic obstructive pulmonary disease, unspecified; Z88.5 Allergy status to narcotic agent
CPT/HCPCS: 99282